=== PATIENT | female | born 1945 | race Caucasian/White ===

== ENCOUNTER 2020-07-04 12:07 | Outpatient (REF) | payer MEDICARE, OTHER, SELFPAY ==
--- NOTE | ~2020-07-04 | MM_ITS ---
EXAMINATION: MM SCREENING DIGITAL BREAST TOMOSYNTHESIS, BILATERAL CLINICAL INFORMATION: Screening. Asymptomatic. The lifetime risk of breast cancer based on the Tyrer-Cuzick Model is 5%. COMPARISON: Mammography: 06/22/2019, 06/17/2018, 05/24/2017 TECHNIQUE: Digital breast tomosynthesis is performed in both the craniocaudal and mediolateral oblique views along with computer-aided detection (CAD). Synthesized 2D images are generated from the tomosynthesis. FINDINGS: There are scattered areas of fibroglandular density (ACR BI-RADS breast composition Category b). There is no interval mass or developing density or architectural abnormality in either breast. There are scattered bilateral benign punctate calcifications. There are focal tightly grouped increased calcifications central mid left breast, possibly vascular on tomography. Patient will be recalled for additional magnification views. MM/MM tomosynthesis screening BI IMPRESSION: 1. Left: Focal increased calcifications mid central left breast, possibly vascular. 2. Right: No mammographic evidence of malignancy. ASSESSMENT: BI-RADS 0: Incomplete - Need Additional Imaging Evaluation RECOMMENDATION: 1. Additional views of the left breast (magnification CC, magnification ML). 2. Radiology department staff will contact the patient for additional imaging. This patient's information was entered into a reminder system with a target due date for their next mammogram.
== END 2020-07-04 12:08 | disposition home or self-care (01) ==
LOC: HO.MAMMO 12:07
PROVIDERS: PCP Internal Medicine; Visit Provider Internal Medicine
DX: Z12.31 Encounter for screening mammogram for malignant neoplasm of breast (principal)
CPT/HCPCS: 77063; 77067

== ENCOUNTER 2020-07-07 10:50 | Outpatient (REF) | payer MEDICARE, OTHER, SELFPAY ==
--- NOTE | ~2020-07-07 | MM_ITS ---
EXAMINATION: MM DIAGNOSTIC DIGITAL MAMMOGRAPHY, LEFT CLINICAL INFORMATION: Recall from screening for focal tightly grouped calcifications central mid left breast, possibly vascular on tomography. COMPARISON: Mammography: 07/04/2020, 06/22/2019 TECHNIQUE: Digital mammography is performed in the following views: Magnification CC x2, magnification ML. FINDINGS: There are scattered areas of fibroglandular density (ACR BI-RADS breast composition Category b). The additional views show the tightly grouped calcifications central mid breast, punctate and with some lucent centers. These have probable benign appearance. There are fine calcifications also present superior medial to the group for recall which are in a linear distribution, at least 15 in number, and fine punctate. They are new from prior studies and stereotactic sampling is recommended. Results are discussed with the patient at time of visit. Patient feels she is unable to lie prone for standard stereotactic sampling. She is willing to have sampling performed at local area outside institution with availability of upright unit. Results are called to court registry officer (Eveline) for Dr. Rossi on 07/07/2020. MM/MM added views LT IMPRESSION: 1. Numerous fine calcifications in linear distribution upper inner left breast. Stereotactic sampling recommended. 2. The calcifications for recall are probably benign. ASSESSMENT: BI-RADS 4: Suspicious RECOMMENDATION: Stereotactic sampling fine calcifications in linear distribution left breast. Note: Patient may require referral to outside facility with availability of an upright stereotactic unit as she feels unable to lie prone for sampling with stereotactic table. This patient's information was entered into a reminder system with a target due date for their next mammogram.
== END 2020-07-07 10:51 | disposition home or self-care (01) ==
LOC: HO.MAMMO 10:50
PROVIDERS: Visit Provider Internal Medicine
DX: R92.1 Mammographic calcification found on diagnostic imaging of breast (principal)
CPT/HCPCS: 77065

== ENCOUNTER → 2020-07-11 10:21 | Outpatient (BNVA) | payer MEDICARE, OTHER, SELFPAY | PROVIDERS: PCP Internal Medicine; Visit Provider Surgery | DX: R92.1 Mammographic calcification found on diagnostic imaging of breast (principal) | CPT/HCPCS: 99202 ==

== ENCOUNTER → 2020-08-24 14:20 | Outpatient (BNVA) | payer MEDICARE, OTHER, SELFPAY | PROVIDERS: PCP Internal Medicine; Visit Provider Surgery | DX: Z13.89 Encounter for screening for other disorder (principal) | CPT/HCPCS: 99212 ==

== ENCOUNTER 2021-02-06 13:45 | Outpatient (REF) | payer MEDICARE, OTHER, SELFPAY ==
--- NOTE | ~2021-02-06 | MM_ITS ---
EXAMINATION: MM DIAGNOSTIC DIGITAL BREAST TOMOSYNTHESIS, LEFT CLINICAL INFORMATION: Short interval follow-up left breast status post outside upright stereotactic biopsy 08/10/2020 ([facility]). Pathology consistent with benign breast tissue with hyalinized fibroadenomatous change with microcalcifications and benign predominantly fatty breast tissue. The lifetime risk of breast cancer based on the Tyrer-Cuzick Model is under 3%. COMPARISON: Mammography: 07/07/2020, 07/04/2020 (BI-RADS 0), 06/22/2019; outside upright stereotactic biopsy procedure report 08/10/2020. TECHNIQUE: Digital breast tomosynthesis is performed in both the craniocaudal and mediolateral oblique views along with computer-aided detection (CAD). Synthesized 2D images are generated from the tomosynthesis. Additional magnification CC x2 and magnification ML views are obtained. FINDINGS: There are scattered areas of fibroglandular density (ACR BI-RADS breast composition Category b). There is a T shaped biopsy clip marker lower central left breast mid depth, corresponding to the calcifications originally cited for recall on screening mammography 07/04/2020. These were felt to be probably benign on the subsequent diagnostic mammography of 07/07/2020. The outside upright stereotactic biopsy report findings are concordant (hyalinized fibroadenomatous change with microcalcifications). The fine calcifications superior and medial to the biopsied calcifications recommended for tissue sampling on diagnostic mammography 07/07/2020 are stable. They are in a linear distribution and at least 15 in number. These reside approximately 6.5 cm medial and 2.5 cm superior to the sampled calcifications, as measured on the magnification views. Although they are without significant change from prior diagnostic mammography, attempt at upright stereotactic tissue sampling is again recommended. If these are unable to be visualized for percutaneous sampling, then continued surveillance would be recommended with diagnostic left mammography in 6 months to include magnification views. Results and recommendation are discussed with the patient at time of visit. Results and recommendation are called to medical communication specialist (Valentina) for Dr. Sullivan on 02/06/2021. MM/MM tomosynthesis diagnostic LT IMPRESSION: 1. The fine calcifications in linear distribution medial and superior to the sampled calcifications are stable. 2. The probable benign calcifications central left breast have been sampled at outside facility and found to be benign. ASSESSMENT: BI-RADS 4: Suspicious RECOMMENDATION: Attempt at upright stereotactic biopsy calcifications left breast (medial and superior to recently sampled area). If the calcifications are unable to be visualized for percutaneous sampling, then continued surveillance would be recommended with diagnostic left mammography in 6 months to include magnification views. This patient's information was entered into a reminder system with a target due date for their next mammogram.
== END 2021-02-06 13:46 | disposition home or self-care (01) ==
LOC: HO.MAMMO 13:45
PROVIDERS: PCP Internal Medicine; Visit Provider Surgery
DX: R92.1 Mammographic calcification found on diagnostic imaging of breast (principal)
CPT/HCPCS: 77061; 77065

== ENCOUNTER → 2021-02-15 11:05 | Outpatient (BNVA) | payer MEDICARE, OTHER, SELFPAY | PROVIDERS: PCP Internal Medicine; Referring Provider Internal Medicine; Visit Provider Surgery | DX: R92.1 Mammographic calcification found on diagnostic imaging of breast (principal) | CPT/HCPCS: 99212 ==

== ENCOUNTER 2021-03-22 14:58 | Outpatient (REF) | payer MEDICARE, OTHER, SELFPAY ==
[2021-03-22 18:48] LABS: Free T4 (Free Thyroxine) 0.89 ng/dL (0.71-1.85); Thyroid Stimulating Hormone 0.04 uIU/mL (0.32-4.0); Vitamin D 25-OH Total 37.3 ng/mL (>30)
[2021-03-23 20:51] LABS: Triiodothyronine T3 Free 3.5 pg/mL (2.3-4.2)
== END 2021-03-22 14:59 | disposition home or self-care (01) ==
LOC: HO.HMGCLDS 14:58
PROVIDERS: PCP Internal Medicine; Visit Provider Internal Medicine
DX: E55.9 Vitamin D deficiency, unspecified (principal); E05.90 Thyrotoxicosis, unspecified without thyrotoxic crisis or storm
CPT/HCPCS: 36415; 82306; 84439; 84443; 84481

== ENCOUNTER 2021-06-27 11:22 | Outpatient (REF) | payer MEDICARE, OTHER, SELFPAY ==
[2021-06-27 14:45] LABS: Free T4 (Free Thyroxine) 0.67 ng/dL (0.71-1.85); Thyroid Stimulating Hormone 1.23 uIU/mL (0.32-4.0)
[2021-06-29 02:12] LABS: Triiodothyronine T3 Free 2.8 pg/mL (2.3-4.2)
== END 2021-06-27 11:23 | disposition home or self-care (01) ==
LOC: HO.HMGCLDS 11:22
PROVIDERS: PCP Internal Medicine; Visit Provider Internal Medicine
DX: E05.90 Thyrotoxicosis, unspecified without thyrotoxic crisis or storm (principal)
CPT/HCPCS: 36415; 84439; 84443; 84481

== ENCOUNTER → 2021-08-09 10:50 | Outpatient (BNVA) | payer MEDICARE, OTHER, SELFPAY | PROVIDERS: PCP Internal Medicine; Referring Provider Internal Medicine; Visit Provider Surgery | DX: R92.1 Mammographic calcification found on diagnostic imaging of breast (principal) | CPT/HCPCS: 99212 ==

== ENCOUNTER 2021-08-21 08:47 | Outpatient (REF) | payer MEDICARE, OTHER, SELFPAY ==
[2021-08-21 11:13] LABS: MANUAL DIFF FLAG NO
[2021-08-21 11:31] LABS: Basophils Absolute Auto 0.1 X10*3/uL (0.0-0.2); Basophils Percent Auto 0.7 % (0-2); Eosinophils Absolute Auto 0.1 X10*3/uL (0.0-0.4); Eosinophils Percent Auto 1.6 % (0-4); Hematocrit 46.4 % (37.0-47.0); Hemoglobin 15.2 g/dl (12.0-16.0); Imm Gran Abs Auto 0.03 X10*3/uL (0.00-0.03); Imm Gran Pct Auto 0.4 % (0.0-0.4); Lymphocytes Absolute Auto 2.5 X10*3/uL (1.2-4.9); Lymphocytes Percent Auto 32.5 % (20-40); Mean Corpuscular HGB Conc 32.8 g/dl (31.0-35.0); Mean Corpuscular Hemoglobin 31.1 pg (27.0-33.0); Mean Corpuscular Volume 94.9 fL (80.0-98.0); Mean Platelet Volume 9.2 fL (9.4-12.3); Monocytes Absolute Auto 0.5 X10*3/uL (0.1-1.2); Monocytes Percent Auto 6.7 % (2-11); Neutrophils Absolute Auto 4.4 x10*3/uL (2.0-8.3); Neutrophils Percent Auto 58.1 % (45-73); Platelet Count 369 X10*3/uL (160-400); Red Blood Count 4.89 X10*6/uL (4.20-5.50); White Blood Count 7.6 X10*3/uL (4.8-10.8)
[2021-08-21 11:40] LABS: Alanine Aminotransferase 15 U/L (0-31); Albumin Level 4.3 g/dL (3.5-5.0); Alkaline Phosphatase 97 U/L (39-117); Anion Gap 12 (12-20); Aspartate Amino Transferase 16 U/L (5-31); Bilirubin Total 0.4 mg/dL (0.0-1.0); Blood Urea Nitrogen 11 mg/dL (9-16); Calcium 9.6 mg/dL (8.4-10.2); Carbon Dioxide 28 mmol/L (22-29); Chloride 104 mmol/L (96-108); Cholesterol 277 mg/dL; Estimated Glomerular Filt Rate 58; Glucose Fasting 102 mg/dL (60-99); HDL Cholesterol 46 mg/dL; LDL Cholesterol Calculated 189 mg/dl; Potassium 4.3 mmol/L (3.3-5.1); Sodium 140 mmol/L (135-145); Total Protein 6.9 g/dL (6.5-8.0); Triglycerides 213 mg/dL
== END 2021-08-21 08:48 | disposition home or self-care (01) ==
LOC: HO.HMGCLDS 08:47
PROVIDERS: PCP Internal Medicine; Visit Provider Nurse Practitioner Family
DX: Z00.00 Encounter for general adult medical examination without abnormal findings (principal); Z13.1 Encounter for screening for diabetes mellitus; F32.0 Major depressive disorder, single episode, mild; I10 Essential (primary) hypertension; E78.00 Pure hypercholesterolemia, unspecified; E05.90 Thyrotoxicosis, unspecified without thyrotoxic crisis or storm
CPT/HCPCS: 36415; 80053; 80061; 85025

== ENCOUNTER 2021-10-16 15:02 | Outpatient (REF) | payer MEDICARE, OTHER, SELFPAY ==
[2021-10-16 16:51] LABS: Alanine Aminotransferase 16 U/L (0-31); Aspartate Amino Transferase 14 U/L (5-31)
[2021-10-16 17:12] LABS: Free T4 (Free Thyroxine) 0.79 ng/dL (0.71-1.85); Thyroid Stimulating Hormone 2.23 uIU/mL (0.32-4.0)
== END 2021-10-16 15:03 | disposition home or self-care (01) ==
LOC: HO.HMGCLDS 15:02
PROVIDERS: PCP Internal Medicine; Visit Provider Internal Medicine
DX: E05.90 Thyrotoxicosis, unspecified without thyrotoxic crisis or storm (principal)
CPT/HCPCS: 36415; 84439; 84443; 84450; 84460; 84481

== ENCOUNTER 2022-01-09 08:10 | Outpatient (REF) | payer MEDICARE, OTHER, SELFPAY ==
[2022-01-09 12:07] LABS: Cholesterol 161 mg/dL; Glucose Fasting 93 mg/dL (60-99); HDL Cholesterol 47 mg/dL; LDL Cholesterol Calculated 83 mg/dl; Triglycerides 158 mg/dL
== END 2022-01-09 08:11 | disposition home or self-care (01) ==
LOC: HO.HMGCLDS 08:10
PROVIDERS: Nurse Practitioner Family; PCP Internal Medicine; Visit Provider Internal Medicine
DX: Z00.00 Encounter for general adult medical examination without abnormal findings (principal); Z13.1 Encounter for screening for diabetes mellitus; E05.90 Thyrotoxicosis, unspecified without thyrotoxic crisis or storm; F32.0 Major depressive disorder, single episode, mild; I10 Essential (primary) hypertension
CPT/HCPCS: 36415; 80061; 82947

== ENCOUNTER → 2022-02-12 10:47 | Outpatient (BNVA) | payer MEDICARE, OTHER, SELFPAY | PROVIDERS: PCP Internal Medicine; Referring Provider Internal Medicine; Visit Provider Surgery | DX: R92.1 Mammographic calcification found on diagnostic imaging of breast (principal) | CPT/HCPCS: 99212 ==

== ENCOUNTER 2022-05-01 13:29 | Outpatient (REF) | payer MEDICARE, OTHER, SELFPAY ==
[2022-05-01 17:33] LABS: Free T4 (Free Thyroxine) 0.77 ng/dL (0.71-1.85); Thyroid Stimulating Hormone 2.25 uIU/mL (0.32-4.0)
[2022-05-03 06:58] LABS: Triiodothyronine T3 Free 2.7 pg/mL (2.3-4.2)
== END 2022-05-01 13:30 | disposition home or self-care (01) ==
LOC: HO.HMGCLDS 13:29
PROVIDERS: PCP Internal Medicine; Visit Provider Internal Medicine
DX: E05.90 Thyrotoxicosis, unspecified without thyrotoxic crisis or storm (principal)
CPT/HCPCS: 36415; 84439; 84443; 84481

== ENCOUNTER 2022-07-04 11:11 | Outpatient (REF) | payer MEDICARE, OTHER, SELFPAY ==
[2022-07-04 15:22] LABS: Free T4 (Free Thyroxine) 0.74 ng/dL (0.71-1.85); Thyroid Stimulating Hormone 3.03 uIU/mL (0.32-4.0)
[2022-07-06 08:58] LABS: Triiodothyronine T3 Total 121 ng/dL (76-181)
[2022-07-06 09:33] LABS: Thyroglobulin Antibodies <1 IU/mL (< or = 1)
[2022-07-06 14:04] LABS: Thyroid Peroxidase Antibodies <1 IU/mL (<9)
[2022-07-10 06:58] LABS: Thyrotropin Receptor Antibody <1.00 IU/L (<=2.00)
[2022-07-11 15:44] LABS: Thyroid Stimulating Immunoglob <89 % baseline (<140)
== END 2022-07-04 11:12 | disposition home or self-care (01) ==
LOC: HO.HMGCLDS 11:11
PROVIDERS: PCP Internal Medicine; Visit Provider Internal Medicine
DX: E05.90 Thyrotoxicosis, unspecified without thyrotoxic crisis or storm (principal); I10 Essential (primary) hypertension; Z79.899 Other long term (current) drug therapy
CPT/HCPCS: 36415; 83520; 84439; 84443; 84445; 84480; 86376; 86800; 99202

== ENCOUNTER 2022-07-23 14:22 | Outpatient (REF) | payer MEDICARE, OTHER, SELFPAY ==
--- NOTE | ~2022-07-23 | US_ITS ---
EXAMINATION: US THYROID CLINICAL INFORMATION: Thyrotoxicosis, unspecified without thyrotoxic crisis or storm. COMPARISON: None available. TECHNIQUE: Linear transducer grayscale and color Doppler examination with attention to the region of the thyroid. FINDINGS: SIZE: Measurements of the thyroid lobes and nodules are given in sagittal, anteroposterior and transverse dimensions respectively. Right Thyroid Lobe: 6.0 x 2.6 x 1.4 cm, volume 11.5 mL. Parenchyma: The gland echotexture is homogeneous. Thyroid vascularity is normal. Left Thyroid Lobe: 5.7 x 2.5 x 1.6 cm, volume 12.3 mL. Parenchyma: The gland echotexture is homogeneous. Thyroid vascularity is normal. Isthmus: 0.3 cm in maximum AP dimension. Estimated total number of nodules greater than or equal to 1 cm: 3. Hydropress Operator nodules are described as follows: 1. Location: Right mid. Size: 1.6 x 1.0 x 1.3 cm, volume 1.0 mL. Nodule characteristics: Composition: Solid/almost completely solid (2). Echogenicity: Isoechoic (1). Shape: Not taller than wide (0). Margins: Smooth (0). Echogenic Foci: Punctate echogenic foci (3). ACR TI-RADS total points: 6 ACR TI-RADS category: 4 2. Location: Right mid. Size: 1.3 x 0.5 x 1.0 cm, volume 0.3 mL. Nodule characteristics: Composition: Solid/almost completely solid (2). Echogenicity: Isoechoic (1). Shape: Not taller than wide (0). Margins: Smooth (0). Echogenic Foci: None (0). ACR TI-RADS total points: 3 ACR TI-RADS category: 3 3. Location: Right medial inferior. Size: 2.2 x 1.2 x 1.3 cm, volume 1.7 mL. Nodule characteristics: Composition: Solid/almost completely solid (2). Echogenicity: Isoechoic (1). Shape: Not taller than wide (0). Margins: Smooth (0). Echogenic Foci: Punctate echogenic foci (3). ACR TI-RADS total points: 6 ACR TI-RADS category: 4 4. Location: Left mid. Size: 2.5 x 1.1 x 1.3 cm, volume 2.0 mL. Nodule characteristics: Composition: Solid/almost completely solid (2). Echogenicity: Isoechoic (1). Shape: Not taller than wide (0). Margins: Ill-defined (0). Echogenic Foci: Punctate echogenic foci (3). ACR TI-RADS total points: 6 ACR TI-RADS category: 4 5. Location: Left mid/inferior. Size: 0.9 x 0.7 x 0.8 cm, volume 0.3 mL. Nodule characteristics: Composition: Solid/almost completely solid (2). Echogenicity: Isoechoic (1). Shape: Not taller than wide (0). Margins: Ill-defined (0). Echogenic Foci: Punctate echogenic foci (3). ACR TI-RADS total points: 6 ACR TI-RADS category: 4 NODES: No lymphadenopathy is seen in the tissue surrounding the thyroid gland. US/US thyroid IMPRESSION: Thyromegaly with multiple complex bilateral thyroid nodules. The largest nodule measuring 2.5 cm in midpole and 1.6 cm in midpole and 2.2 cm in lower pole should be biopsied as per ACR TI-RADS recommendation. ACR TI-RADS RECOMMENDATION REFERENCE: Ultrasound-guided fine-needle aspiration, followup ultrasound, no further follow up. * TR1 (0 point) and TR2 (2 points): No FNA or follow up. * TR3 (3 points): FNA if more than or equal to 2.5 cm in maximum dimension, followup ultrasound in 1, 3 and 5 years if 1.5 to 2.4 cm in maximum dimension. * TR4 (4-6 points): FNA if more than or equal to 1.5 cm in maximum dimension, followup ultrasound in 1, 2, 3 and 5 years if 1 to 1.4 cm in maximum dimension. * TR5 (more than or equal to 7 points): FNA if more than or equal to 1 cm in maximum dimension, followup ultrasound every year for 5 years if 0.5 to 0.9 cm in maximum dimension. * TR3, TR4 or TR5 nodules that are below the size threshold for followup receive no follow up.
== END 2022-07-23 14:23 | disposition home or self-care (01) ==
LOC: HO.US 14:22
PROVIDERS: PCP Internal Medicine; Visit Provider Internal Medicine
DX: E05.90 Thyrotoxicosis, unspecified without thyrotoxic crisis or storm (principal)
CPT/HCPCS: 76536

== ENCOUNTER 2022-08-29 07:58 | Outpatient (REF) | payer MEDICARE, SELFPAY ==
[2022-08-29 12:02] LABS: Cholesterol 198 mg/dL; HDL Cholesterol 40 mg/dL; LDL Cholesterol Calculated 123 mg/dl; Triglycerides 175 mg/dL
== END 2022-08-29 07:59 | disposition home or self-care (01) ==
LOC: HO.HMGCLDS 07:58
PROVIDERS: PCP Internal Medicine; Visit Provider Internal Medicine
DX: E78.5 Hyperlipidemia, unspecified (principal)
CPT/HCPCS: 36415; 80061

== ENCOUNTER 2022-11-12 12:37 | Outpatient (REF) | payer MEDICARE, OTHER, SELFPAY ==
--- NOTE | ~2022-11-12 | US_ITS ---
EXAMINATION: Ultrasound biopsy thyroid CLINICAL INFORMATION: Multinodular goiter COMPARISON: Previous thyroid ultrasound July 2022 TECHNIQUE: Procedure and risks and benefits including bleeding and infection were discussed with the patient and informed consent was obtained. The left neck was prepped and draped in the usual sterile fashion. The skin and soft tissues were anesthetized with 1% lidocaine plain. Using ultrasound guidance a 25-gauge needles, access to the dominant nodule in the mid left lobe was obtained. 3 25-gauge FNA specimens were obtained. Subsequently, using a 25-gauge needle, access to the nodule in the inferior left lobe was obtained. 3 25-gauge specimens were obtained. FINDINGS: There is a 1.4 x 1 x 2.5 cm nodule in the mid left lobe with punctate calcifications and 1 x 0.9 x 0.7 cm nodule in the inferior left lobe with punctate calcifications that were targeted for fine-needle aspiration. US/US biopsy thyroid IMPRESSION: Fine-needle aspiration of 2 left thyroid nodules.
== END 2022-11-12 12:38 | disposition home or self-care (01) ==
LOC: HO.US 12:37
PROVIDERS: PCP Internal Medicine; Visit Provider Internal Medicine
DX: E04.2 Nontoxic multinodular goiter (principal)
CPT/HCPCS: 10005; 88112; 88172; 88173; 88177

== ENCOUNTER 2022-11-22 12:34 | Outpatient (AMB) | payer MEDICARE, OTHER, SELFPAY ==
--- NOTE | 2022-11-22 12:35 | A.OFFVIS_ITS ---
Intake Intake Visit Reasons: FNA results Allergies cefuroxime [From Ceftin] Allergy (Unknown, Verified 11/22/22 12:41) Unknown epinephrine [Adrenalin] Allergy (Unknown, Verified 11/22/22 12:41) rapid heartbeat penicillin V Allergy (Unknown, Verified 11/22/22 12:41) Unknown Medication List - Last Reconciled 11/22/22 by Kayla Rapp, DO atorvastatin 10 mg PO DAILY lisinopril 2.5 mg PO DAILY methimazole 2.5 mg (1/2 x 5 mg) PO DAILY omeprazole 20 mg PO DAILY HPI HPI Comments History of Present Illness Details 77 YO Female with a PMHx of hyperthyroidism who is seen in F/U for a NTMNG. She reports being diagnosed with hyperthyroidism approximately 1 year ago. It is unclear what workup she underwent as no records have been received. She does report she had a thyroid uptake and scan which was normal, but she is unsure of any antibodies that were checked. She was started on methimazole 2.5 mg PO daily an remains on this now. She is tolerating this well without the development of rash, jaundice or frequent infection. She underwent FNA biopsy 11/14/2022 of her left mid pole 2.5 cm and left lower pole 1.0 cm thyroid nodules, both with benign cytology. She did not undergo FNA biopsy of her right lobe nodules. Thyroid US: 07/23/2022 Right Thyroid Lobe: 6.0 x 2.6 x 1.4 cm, volume 11.5 mL. Parenchyma: The gland echotexture is homogeneous. Thyroid vascularity is normal. Left Thyroid Lobe: 5.7 x 2.5 x 1.6 cm, volume 12.3 mL. Parenchyma: The gland echotexture is homogeneous. Thyroid vascularity is normal. Isthmus: 0.3 cm in maximum AP dimension. Estimated total number of nodules greater than or equal to 1 cm: 3. Furnace Checker nodules are described as follows: 1. Location: Right mid. ?? ? Size: 1.6 x 1.0 x 1.3 cm, volume 1.0 mL. ?? ? Nodule characteristics: ?? ? Composition: Solid/almost completely solid (2). ?? ? Echogenicity: Isoechoic (1). ?? ? Shape: Not taller than wide (0). ?? ? Margins: Smooth (0). ?? ? Echogenic Foci: Punctate echogenic foci (3). ?? ? ACR TI-RADS total points: 6 ?? ? ACR TI-RADS category: 4 2. Location: Right mid. ?? ? Size: 1.3 x 0.5 x 1.0 cm, volume 0.3 mL. ?? ? Nodule characteristics: ?? ? Composition: Solid/almost completely solid (2). ?? ? Echogenicity: Isoechoic (1). ?? ? Shape: Not taller than wide (0). ?? ? Margins: Smooth (0). ?? ? Echogenic Foci: None (0). ?? ? ACR TI-RADS total points: 3 ?? ? ACR TI-RADS category: 3 3. Location: Right medial inferior. ?? ? Size: 2.2 x 1.2 x 1.3 cm, volume 1.7 mL. ?? ? Nodule characteristics: ?? ? Composition: Solid/almost completely solid (2). ?? ? Echogenicity: Isoechoic (1). ?? ? Shape: Not taller than wide (0). ?? ? Margins: Smooth (0). ?? ? Echogenic Foci: Punctate echogenic foci (3). ?? ? ACR TI-RADS total points: 6 ?? ? ACR TI-RADS category: 4 4. Location: Left mid. ?? ? Size: 2.5 x 1.1 x 1.3 cm, volume 2.0 mL. ?? ? Nodule characteristics: ?? ? Composition: Solid/almost completely solid (2). ?? ? Echogenicity: Isoechoic (1). ?? ? Shape: Not taller than wide (0). ?? ? Margins: Ill-defined (0). ?? ? Echogenic Foci: Punctate echogenic foci (3). ?? ? ACR TI-RADS total points: 6 ?? ? ACR TI-RADS category: 4 5.? Location: Left mid/inferior. ?? ? Size: 0.9 x 0.7 x 0.8 cm, volume 0.3 mL. ?? ? Nodule characteristics: ?? ? Composition: Solid/almost completely solid (2). ?? ? Echogenicity: Isoechoic (1). ?? ? Shape: Not taller than wide (0). ?? ? Margins: Ill-defined (0). ?? ? Echogenic Foci: Punctate echogenic foci (3). ?? ? ACR TI-RADS total points: 6 ?? ? ACR TI-RADS category: 4 NODES: No lymphadenopathy is seen in the tissue surrounding the thyroid gland. Labs: Laboratory Tests 05/01/22 13:36 TSH 2.25 Free T4 0.77 PFSH Medical History Breast calcification, left Hypertension Hyperthyroidism Multinodular thyroid Surgical History History of breast biopsy History of cholecystectomy Family History Father Esophageal cancer Mother No problems noted. Social History Housing: [facility] Alcohol intake: current Alcohol intake frequency: holidays/special occasions only Patient Tobacco Use Status: Current everyday Tobacco user Tobacco use type: Cigarette Cigarette Packs Per Day: 0.5 Cigarettes Per Day: 10 e-Cigarette/Vaping Use: Never Used Second Hand Smoke Exposure: Yes service: No Current occupational status: retired Cognitive needs: No Hearing needs: No Vision needs: No Assessment & Plan Assessment & Plan (1) Hyperthyroidism: Code(s): E05.90 - Thyrotoxicosis, unspecified without thyrotoxic crisis or storm Plan: Patient with hyperthyroidism. All antibodies negative and TFTs at goal on methimazole 2.5 mg PO daily. Will continue for now while she is undergoing biopsies. Once complete we will discuss weaning her off of this to assess for remission as I have been unable to determine a cause for her hyperthyroidism. All of her questions were answered. She is in agreement with this plan of care. I spent 25 minutes in reviewing the record, seeing the patient and documenting in the medical record, including 5 minutes on the phone with the Patient. (2) Multinodular thyroid: Code(s): E04.2 - Nontoxic multinodular goiter Plan: Patient underwent FNA biopsy of her left mid pole 2.5 cm and left lower pole 1.0 cm thyroid nodules 11/14/2022 with benign cytology. FNA is also indicated of her right mid pole 1.6 cm, right mid pole 1.3 cm and right mid pole 2.2 cm thyroid nodules. I will order at this time for these to be completed with IR. Orders: Orders Triiodothyronine T3 Total Today E05.90 - Thyrotoxicosis, unspecified without thyrotoxic crisis or storm Free T4 (Free Thyroxine) Today E05.90 - Thyrotoxicosis, unspecified without thyrotoxic crisis or storm Thyroid Stimulating Hormone Today E05.90 - Thyrotoxicosis, unspecified without thyrotoxic crisis or storm US biopsy thyroid Today E04.2 - Nontoxic multinodular goiter Telehealth Telehealth Location of provider rendering services: practice address Location of patient: address on file Patient Identification confirmed using: Name, : Yes Telehealth method: voice only Patient verbally consented to treatment: Yes Patient verbally consented to billing insurance company: Yes Patient informed of any privacy concerns related to visit: Yes Coding Level of Care Code Tele Est Pt Level 3 (18375) Diagnoses Hyperthyroidism E05.90 Multinodular thyroid E04.2
== END 2022-11-22 13:13 | disposition home or self-care (01) ==
LOC: HO.ENCR 12:34
PROVIDERS: PCP Internal Medicine; Visit Provider Internal Medicine
DX: E05.90 Thyrotoxicosis, unspecified without thyrotoxic crisis or storm (principal); E04.2 Nontoxic multinodular goiter
CPT/HCPCS: 99443

== ENCOUNTER → 2022-11-22 12:34 | Outpatient (BNVA) | payer MEDICARE, OTHER, SELFPAY | PROVIDERS: PCP Internal Medicine; Visit Provider Internal Medicine ==

== ENCOUNTER 2022-11-30 13:32 | Outpatient (REF) | payer MEDICARE, OTHER, SELFPAY ==
[2022-11-30 17:05] LABS: Free T4 (Free Thyroxine) 0.65 ng/dL (0.71-1.85)
[2022-12-02 08:13] LABS: Triiodothyronine T3 Total 113 ng/dL (76-181)
== END 2022-11-30 13:33 | disposition home or self-care (01) ==
LOC: HO.HMGCLDS 13:32
PROVIDERS: PCP Internal Medicine; Visit Provider Internal Medicine
DX: E05.90 Thyrotoxicosis, unspecified without thyrotoxic crisis or storm (principal)
CPT/HCPCS: 36415; 84439; 84443; 84480

== ENCOUNTER 2022-12-13 13:06 | Outpatient (REF) | payer MEDICARE, OTHER, SELFPAY ==
--- NOTE | ~2022-12-13 | US_ITS ---
Ultrasound-guided biopsy of 3 nodules in the right lobe of the thyroid gland INDICATIONS: Multiple thyroid nodules status post biopsy of 2 nodules in the left lobe of the thyroid gland on 11/12/2022 After informed written consent was obtained in official timeout was performed immediately prior to the procedure. PROCEDURE: Initial ultrasound surveillance of the right lobe of the thyroid gland redemonstrated the dominant nodules: one in the isthmus of the thyroid gland slightly to the right of midline measuring 2.1 x 0.8 x 1.6 cm. A second lesion in the inferior aspect of the right lobe of the thyroid gland measured 1.9 x 1.2 x 1.2 cm. A third lesion in the midportion of the right lobe of the gland measures 1.6 x 0.9 x 1.3 cm. A fourth smaller nodule is present in the midportion of the gland measuring 0.7 cm in size. Under ultrasound guidance initially the lesion in the isthmus of the gland extending slightly to the right of midline was biopsied with a 25-gauge needle. 3 aspirations were obtained with one sample placed in the afirma. The lesion in the lower pole of the right lobe of the gland measuring 1.9 x 1.2 x 1.6 cm was biopsy with a 25-gauge needle. 2 passes were obtained. The third lesion in the midportion of the gland measuring 1.6 x 0.9 x 1.3 cm was then sampled with 3 needle aspirates obtained with one sample placed in afirma as well. US/US guided fine needle asp IMPRESSION: Ultrasound-guided biopsy of the 3 of the largest nodules in the right lobe of the thyroid gland.
--- NOTE | ~2022-12-13 | US_ITS ---
Ultrasound-guided biopsy of 3 nodules in the right lobe of the thyroid gland INDICATIONS: Multiple thyroid nodules status post biopsy of 2 nodules in the left lobe of the thyroid gland on 11/12/2022 After informed written consent was obtained in official timeout was performed immediately prior to the procedure. PROCEDURE: Initial ultrasound surveillance of the right lobe of the thyroid gland redemonstrated the dominant nodules: one in the isthmus of the thyroid gland slightly to the right of midline measuring 2.1 x 0.8 x 1.6 cm. A second lesion in the inferior aspect of the right lobe of the thyroid gland measured 1.9 x 1.2 x 1.2 cm. A third lesion in the midportion of the right lobe of the gland measures 1.6 x 0.9 x 1.3 cm. A fourth smaller nodule is present in the midportion of the gland measuring 0.7 cm in size. Under ultrasound guidance initially the lesion in the isthmus of the gland extending slightly to the right of midline was biopsied with a 25-gauge needle. 3 aspirations were obtained with one sample placed in the afirma. The lesion in the lower pole of the right lobe of the gland measuring 1.9 x 1.2 x 1.6 cm was biopsy with a 25-gauge needle. 2 passes were obtained. The third lesion in the midportion of the gland measuring 1.6 x 0.9 x 1.3 cm was then sampled with 3 needle aspirates obtained with one sample placed in afirma as well. US/US guided fine needle asp add IMPRESSION: Ultrasound-guided biopsy of the 3 of the largest nodules in the right lobe of the thyroid gland.
[2022-12-13] MEDS: Lidocaine HCl 1 % MPF 5 ML VIAL SUBCUT (14:45)
== END 2022-12-13 13:07 | disposition home or self-care (01) ==
LOC: HO.US 13:06
PROVIDERS: PCP Internal Medicine; Visit Provider Internal Medicine Endocrinology, Diabetes & Metabolism
DX: E04.2 Nontoxic multinodular goiter (principal)
CPT/HCPCS: 10005; 10006; 88172; 88173; 88177

== ENCOUNTER → 2022-12-13 13:08 | Outpatient (BNV) | payer MEDICARE, OTHER, SELFPAY | PROVIDERS: PCP Internal Medicine; Visit Provider Radiology Vascular & Interventional Radiology | DX: E04.2 Nontoxic multinodular goiter (principal) | CPT/HCPCS: 10005; 10006 ==

== ENCOUNTER 2022-12-31 09:16 | Outpatient (AMB) | payer MEDICARE, OTHER, SELFPAY ==
--- NOTE | 2022-12-31 09:17 | A.OFFVIS_ITS ---
Intake Intake Visit Reasons: FNA Result Intake Note: FNA results. [employer] Required: No Allergies cefuroxime [From Ceftin] Allergy (Unknown, Verified 12/31/22 09:49) Unknown epinephrine [Adrenalin] Allergy (Unknown, Verified 12/31/22 09:49) rapid heartbeat penicillin V Allergy (Unknown, Verified 12/31/22 09:49) Unknown Medication List - Last Reconciled 12/31/22 by Kayla Rapp, atorvastatin 10 mg PO DAILY lisinopril 2.5 mg PO DAILY methimazole 2.5 mg (1/2 x 5 mg) PO DAILY omeprazole 20 mg PO DAILY HPI HPI Comments History of Present Illness Details 77 YO Female with a PMHx of hyperthyroidism who is seen in F/U for a NTMNG. She reports being diagnosed with hyperthyroidism approximately 1 year ago. It is unclear what workup she underwent as no records have been received. She does report she had a thyroid uptake and scan which was normal, but she is unsure of any antibodies that were checked. She was started on methimazole 2.5 mg PO daily an remains on this now. She is tolerating this well without the development of rash, jaundice or frequent infection. She underwent FNA biopsy 11/14/2022 of her left mid pole 2.5 cm and left lower pole 1.0 cm thyroid nodules, both with benign cytology. She did not undergo FNA biopsy of her right lobe nodules. She underwent an additional FNA biopsy 12/14/2022 of her R sided nodule, right isthmus 2.1 cm, benign right lower pole 1.9 cm, benign right mid pole 1.6 cm, benign Thyroid US: 07/23/2022 Right Thyroid Lobe: 6.0 x 2.6 x 1.4 cm, volume 11.5 mL. Parenchyma: The gland echotexture is homogeneous. Thyroid vascularity is normal. Left Thyroid Lobe: 5.7 x 2.5 x 1.6 cm, volume 12.3 mL. Parenchyma: The gland echotexture is homogeneous. Thyroid vascularity is normal. Isthmus: 0.3 cm in maximum AP dimension. Estimated total number of nodules greater than or equal to 1 cm: 3. Tanbark Peeler nodules are described as follows: 1. Location: Right mid. ?? ? Size: 1.6 x 1.0 x 1.3 cm, volume 1.0 mL. ?? ? Nodule characteristics: ?? ? Composition: Solid/almost completely solid (2). ?? ? Echogenicity: Isoechoic (1). ?? ? Shape: Not taller than wide (0). ?? ? Margins: Smooth (0). ?? ? Echogenic Foci: Punctate echogenic foci (3). ?? ? ACR TI-RADS total points: 6 ?? ? ACR TI-RADS category: 4 2. Location: Right mid. ?? ? Size: 1.3 x 0.5 x 1.0 cm, volume 0.3 mL. ?? ? Nodule characteristics: ?? ? Composition: Solid/almost completely solid (2). ?? ? Echogenicity: Isoechoic (1). ?? ? Shape: Not taller than wide (0). ?? ? Margins: Smooth (0). ?? ? Echogenic Foci: None (0). ?? ? ACR TI-RADS total points: 3 ?? ? ACR TI-RADS category: 3 3. Location: Right medial inferior. ?? ? Size: 2.2 x 1.2 x 1.3 cm, volume 1.7 mL. ?? ? Nodule characteristics: ?? ? Composition: Solid/almost completely solid (2). ?? ? Echogenicity: Isoechoic (1). ?? ? Shape: Not taller than wide (0). ?? ? Margins: Smooth (0). ?? ? Echogenic Foci: Punctate echogenic foci (3). ?? ? ACR TI-RADS total points: 6 ?? ? ACR TI-RADS category: 4 4. Location: Left mid. ?? ? Size: 2.5 x 1.1 x 1.3 cm, volume 2.0 mL. ?? ? Nodule characteristics: ?? ? Composition: Solid/almost completely solid (2). ?? ? Echogenicity: Isoechoic (1). ?? ? Shape: Not taller than wide (0). ?? ? Margins: Ill-defined (0). ?? ? Echogenic Foci: Punctate echogenic foci (3). ?? ? ACR TI-RADS total points: 6 ?? ? ACR TI-RADS category: 4 5.? Location: Left mid/inferior. ?? ? Size: 0.9 x 0.7 x 0.8 cm, volume 0.3 mL. ?? ? Nodule characteristics: ?? ? Composition: Solid/almost completely solid (2). ?? ? Echogenicity: Isoechoic (1). ?? ? Shape: Not taller than wide (0). ?? ? Margins: Ill-defined (0). ?? ? Echogenic Foci: Punctate echogenic foci (3). ?? ? ACR TI-RADS total points: 6 ?? ? ACR TI-RADS category: 4 NODES: No lymphadenopathy is seen in the tissue surrounding the thyroid gland. Labs: FORMERLY [facility], 1928–1983 Medical History Breast calcification, left Hypertension Hyperthyroidism Multinodular thyroid Surgical History History of biopsy History of breast biopsy History of cholecystectomy Family History Father Esophageal cancer Mother No problems noted. Social History Housing: [facility] Alcohol intake: current Alcohol intake frequency: holidays/special occasions only Patient Tobacco Use Status: Current everyday Tobacco user Tobacco use type: Cigarette Cigarette Packs Per Day: 0.5 Cigarettes Per Day: 10 e-Cigarette/Vaping Use: Never Used Second Hand Smoke Exposure: Yes service: No Current occupational status: retired Cognitive needs: No Hearing needs: No Vision needs: No Assessment & Plan Assessment & Plan (1) Hyperthyroidism: Code(s): E05.90 - Thyrotoxicosis, unspecified without thyrotoxic crisis or storm Plan: Patient with hyperthyroidism. All antibodies negative and TFTs at goal on methimazole 2.5 mg PO daily. Will continue for now. She will remain on this until her F/U with Raheel German at which time they can discuss weaning her off. All of her questions were answered. She is in agreement with this plan of care. I spent 20 minutes in reviewing the record, seeing the patient and documenting in the medical record, including 5 minutes on the phone with the Patient. (2) Multinodular thyroid: Code(s): E04.2 - Nontoxic multinodular goiter Plan: All biopsies benign. She will require a surveillance US in 1 years time. Telehealth Telehealth Location of provider rendering services: practice address Location of patient: address on file Patient Identification confirmed using: Name, : Yes Telehealth method: voice only Patient verbally consented to treatment: Yes Patient verbally consented to billing insurance company: Yes Patient informed of any privacy concerns related to visit: Yes Coding Level of Care Code Tele Est Pt Level 3 (64588) Diagnoses Hyperthyroidism E05.90 Multinodular thyroid E04.2
== END 2022-12-31 10:53 | disposition home or self-care (01) ==
LOC: HO.ENCR 09:16
PROVIDERS: PCP Internal Medicine; Visit Provider Internal Medicine
DX: E05.90 Thyrotoxicosis, unspecified without thyrotoxic crisis or storm (principal); E04.2 Nontoxic multinodular goiter
CPT/HCPCS: 99441

== ENCOUNTER → 2022-12-31 09:16 | Outpatient (BNVA) | payer MEDICARE, OTHER, SELFPAY | PROVIDERS: PCP Internal Medicine; Visit Provider Internal Medicine ==

== ENCOUNTER 2023-02-25 07:58 | Outpatient (REF) | payer MEDICARE, OTHER, SELFPAY ==
[2023-02-25 12:36] LABS: Alanine Aminotransferase 17 U/L (0-31); Albumin Level 4.2 g/dL (3.5-5.0); Alkaline Phosphatase 77 U/L (39-117); Anion Gap 15 (12-20); Aspartate Amino Transferase 17 U/L (5-31); Bilirubin Total 0.7 mg/dL (0.0-1.0); Blood Urea Nitrogen 8 mg/dL (9-16); Calcium 9.8 mg/dL (8.4-10.2); Carbon Dioxide 26 mmol/L (22-29); Chloride 105 mmol/L (96-108); Cholesterol 169 mg/dL (<200); Estimated Glomerular Filt Rate > 60; Glucose Fasting 92 mg/dL (60-99); HDL Cholesterol 42 mg/dL (>40); LDL Cholesterol Calculated 95 mg/dL (<100); Potassium 3.8 mmol/L (3.3-5.1); Sodium 142 mmol/L (135-145); Triglycerides 161 mg/dL (<150)
[2023-02-25 12:41] LABS: Thyroid Stimulating Hormone 5.24 uIU/mL (0.32-4.0)
== END 2023-02-25 07:59 | disposition home or self-care (01) ==
LOC: HO.HMGCLDS 07:58
PROVIDERS: PCP Internal Medicine; Visit Provider Internal Medicine
DX: E03.9 Hypothyroidism, unspecified (principal); N28.9 Disorder of kidney and ureter, unspecified; E78.5 Hyperlipidemia, unspecified
CPT/HCPCS: 36415; 80053; 80061; 84443

== ENCOUNTER 2023-03-11 11:18 | Outpatient (AMB) | payer MEDICARE, OTHER, SELFPAY ==
[2023-03-11 11:19] VITALS: BP 154/84; PULSE 80; O2SAT 97
--- NOTE | 2023-03-11 11:19 | A.OFFPC_ITS ---
Vital Signs 03/11/23 11:19 Height 5 ft 4 in BP 154/84 H Blood Pressure Location Lt brachial Position Sitting Pulse 80 Pulse Source Pulse Oximeter Pulse Oximetry (%) 97 Oxygen Delivery Method Room Air Intake Visit Reasons: 6mth f/u Allergies cefuroxime [From Ceftin] Allergy (Unknown, Verified 03/11/23 11:19) Unknown epinephrine [Adrenalin] Allergy (Unknown, Verified 03/11/23 11:19) rapid heartbeat penicillin V Allergy (Unknown, Verified 03/11/23 11:19) Unknown Medication List - Last Reconciled 03/11/23 by Noam Rossi MD atorvastatin 10 mg PO DAILY lisinopril 2.5 mg PO DAILY methimazole 2.5 mg (1/2 x 5 mg) PO DAILY omeprazole 20 mg PO DAILY Tobacco use date assessed: 09/07/22 Fall risk assessment: No Falls in past year Last assessed Fall Risk: 03/11/23 Dental Screening Dental Screen Date: 03/11/23 Did you have a dental visit in the last 12 months?: Yes Did you have a dental problem in the last 6 months where you did not have access to dental care?: No Was dental information given to patient?: Patient has dentist HPI 6mth f/u HPI Details HTN hyperthyroidism and hyperlip on rx; doing well; compliant [facility] Medical History Multinodular thyroid Breast calcification, left Hypertension Hyperthyroidism Surgical History History of biopsy History of breast biopsy History of cholecystectomy Family History Father Esophageal cancer Mother No problems noted. Social History Housing: Condominium Alcohol intake: current Alcohol intake frequency: holidays/special occasions only Patient Tobacco Use Status: Current everyday Tobacco user Tobacco use type: Cigarette Cigarette Packs Per Day: 0.5 Cigarettes Per Day: 10 e-Cigarette/Vaping Use: Never Used Second Hand Smoke Exposure: Yes service: No Current occupational status: retired Cognitive needs: No Hearing needs: No Vision needs: No Questionnaire PHQ-9 Over the last 2 weeks, how often have you been bothered by any of the following problems? 1. Little interest or pleasure in doing things: not at all 2. Feeling down, depressed, or hopeless: not at all 3. Trouble falling or staying asleep, or sleeping too much: not at all 4. Feeling tired or having little energy: not at all 5. Poor appetite or overeating: not at all 6. Feeling bad about yourself - or that you are a failure or have let yourself or your family down: not at all 7. Trouble concentrating on things, such as reading the newspaper or watching television: not at all 8. Moving or speaking so slowly that other people could have noticed. Or the opposite - being so fidgety or restless that you have been moving around a lot more than usual: not at all 9. Thoughts that you would be better off or of hurting yourself in some way: not at all Total score: 0 Depression Screening Interpretation: Negative Depression Screening Done: Yes 56678 - PHQ-9 Billing: Yes Source: Developed by Drs. Reynold Castillo, Michael Downing and colleagues, with an educational johnson from [employer]. Thrive Questionnaire Date Thrive assessed: 09/07/22 AUDIT C Alcohol Use Questionnaire (AUDIT-C) 1. How often do you have a drink containing alcohol?: Never Total Score: 0 Score Reviewed/Action Taken: Yes NATALIE-7 AMB Questionnaire NATALIE-7 Date NATALIE - 7 assessed: 09/07/22 Source: Developed by Drs. Reynold Castillo, Michael Downing and colleagues, with an educational johnson from [employer]. Review of Systems Const Denies chills, Denies headache(s) and Denies weight loss ENT Denies headache(s) Card Denies chest pain, Denies syncope, Denies irregular heart rhythm and Denies dyspnea Resp Denies chest congestion, Denies cough and Denies dyspnea GI Denies abdominal pain, Denies change in stool character, Denies nausea and Denies vomiting Musc Denies deformity and Denies joint swelling Neuro Denies syncope and Denies headache(s) Physical exam (Primary Care) Vital Signs: Last Vital Signs Pulse 80 03/11/23 11:19 BP 154/84 H 03/11/23 11:19 Pulse Ox 97 03/11/23 11:19 Oxygen Delivery Method Room Air 03/11/23 11:19 Tobacco/Smoking Status: Tobacco use Status Tobacco use date assessed 09/07/22 03/11/23 11:20 Patient Tobacco Use Status Current everyday Tobacco 03/11/23 11:20 Tobacco use type Cigarette 03/11/23 11:20 e-Cigarette/Vaping Use Never Used 03/11/23 11:20 PHQ-9: PHQ-9 Score PHQ-9: Total score 0 03/11/23 11:20 Depression Screening Interpretation: Negative Thrive Assessment: Date of Thrive Assessment Date Thrive assessed 09/07/22 03/11/23 11:20 Const General: cooperative, comfortable, no acute distress and alert Neck Neck: Yes no lymphadenopathy Thyroid: Thyroid normal Resp Effort & Inspection: normal respiratory effort Auscultation: clear to auscultation bilaterally Percussion: percussion normal Cardio Jugular venous distension: no JVD Palpation: normal PMI Rate: regular rate Rhythm: regular rhythm Heart sounds: S1 normal heart sound present and S2 normal heart sound present GI Inspection: Yes normal to inspection Palpation (GI): No hepatosplenomegaly present Skin General skin exam: no rashes or lesions noted Extrem General: Yes no clubbing, cyanosis or edema Assessment and Plan Assessment & Plan (1) Hyperlipidemia: Code(s): E78.5 - Hyperlipidemia, unspecified Plan: stable; same rx (2) Hyperthyroidism: Code(s): E05.90 - Thyrotoxicosis, unspecified without thyrotoxic crisis or storm Plan: stable; same rx (3) Hypertension: Code(s): I10 - Essential (primary) hypertension Plan: stable; same rx Orders: Orders Lipid Panel Today E78.5 - Hyperlipidemia, unspecified Thyroid Stimulating Hormone Today E03.9 - Hypothyroidism, unspecified Coding Level of Care Code Est Pt Level 4 (71884) Diagnoses Hyperlipidemia E78.5 Hyperthyroidism E05.90 Hypertension I10
== END 2023-03-11 11:39 | disposition home or self-care (01) ==
PROVIDERS: Visit Provider Internal Medicine
DX: E78.5 Hyperlipidemia, unspecified (principal); E05.90 Thyrotoxicosis, unspecified without thyrotoxic crisis or storm; I10 Essential (primary) hypertension
CPT/HCPCS: 99214

== ENCOUNTER 2023-03-19 11:16 | Outpatient (REF) | payer MEDICARE, OTHER, SELFPAY ==
[2023-03-19 13:30] LABS: MANUAL DIFF FLAG NO
[2023-03-19 13:32] LABS: Basophils Percent Auto 0.5 % (0-2); Eosinophils Absolute Auto 0.2 X10*3/uL (0.0-0.4); Eosinophils Percent Auto 2.3 % (0-4); Hematocrit 44.2 % (37.0-47.0); Hemoglobin 14.4 g/dl (12.0-16.0); Imm Gran Abs Auto 0.02 X10*3/uL (0.00-0.03); Imm Gran Pct Auto 0.3 % (0.0-0.4); Lymphocytes Absolute Auto 2.5 X10*3/uL (1.2-4.9); Lymphocytes Percent Auto 33.8 % (20-40); Mean Corpuscular HGB Conc 32.6 g/dl (31.0-35.0); Mean Corpuscular Hemoglobin 31.2 pg (27.0-33.0); Mean Corpuscular Volume 95.7 fL (80.0-98.0); Mean Platelet Volume 9.1 fL (9.4-12.3); Monocytes Absolute Auto 0.5 X10*3/uL (0.1-1.2); Monocytes Percent Auto 7.1 % (2-11); Neutrophils Absolute Auto 4.1 x10*3/uL (2.0-8.3); Platelet Count 338 X10*3/uL (160-400); Red Blood Count 4.62 X10*6/uL (4.20-5.50); Red Cell Distribution Width 12.6 % (11.0-16.0); White Blood Count 7.3 X10*3/uL (4.8-10.8)
[2023-03-19 14:03] LABS: Thyroid Stimulating Hormone 3.79 uIU/mL (0.32-4.0)
== END 2023-03-19 11:17 | disposition home or self-care (01) ==
LOC: HO.HMGCLDS 11:16
PROVIDERS: PCP Internal Medicine; Visit Provider Internal Medicine
DX: D64.9 Anemia, unspecified (principal); E03.9 Hypothyroidism, unspecified
CPT/HCPCS: 36415; 84443; 85025

== ENCOUNTER 2023-06-24 13:24 | Outpatient (REF) | payer MEDICARE, OTHER, SELFPAY ==
[2023-06-24 17:07] LABS: Free T4 (Free Thyroxine) 0.75 ng/dL (0.71-1.85); Thyroid Stimulating Hormone 0.89 uIU/mL (0.32-4.0)
[2023-06-25 07:29] LABS: Triiodothyronine T3 Free 3.1 pg/mL (2.3-4.2)
== END 2023-06-24 13:25 | disposition home or self-care (01) ==
LOC: HO.HMGCLDS 13:24
PROVIDERS: PCP Internal Medicine; Visit Provider Internal Medicine
DX: E05.20 Thyrotoxicosis with toxic multinodular goiter without thyrotoxic crisis or storm (principal)
CPT/HCPCS: 36415; 84439; 84443; 84481

== ENCOUNTER 2023-09-10 11:18 | Outpatient (AMB) | payer MEDICARE, OTHER, SELFPAY ==
[2023-09-10 11:21] VITALS: BP 150/80; PULSE 80; O2SAT 98; BMI 33.6
--- NOTE | 2023-09-10 11:21 | MHC.PC.OV ---
Vital Signs 09/10/23 11:21 Height 5 ft 4 in Weight 196 lb BMI 33.6 BP 150/80 H Blood Pressure Location Lt brachial Position Sitting Pulse 80 Pulse Source Pulse Oximeter Pulse Oximetry (%) 98 Oxygen Delivery Method Room Air Intake Visit Reasons: 6 month f/u Consultant Dietitian Required: No Pc Maintenance Technician: Not Required per policy Accompanied by: Self / Same As Patient Allergies cefuroxime [From Ceftin] Allergy (Unknown, Verified 09/10/23 11:22) Unknown epinephrine [Adrenalin] Allergy (Unknown, Verified 09/10/23 11:22) rapid heartbeat penicillin V Allergy (Unknown, Verified 09/10/23 11:22) Unknown Medication List - Last Reconciled 09/10/23 by Noam Rossi MD atorvastatin 10 mg PO DAILY lisinopril 2.5 mg PO DAILY methimazole 2.5 mg (1/2 x 5 mg) PO DAILY omeprazole 20 mg PO DAILY Tobacco use date assessed: 09/10/23 Fall risk assessment: No Falls in past year Last assessed Fall Risk: 09/10/23 Dental Screening Dental Screen Date: 09/10/23 Did you have a dental visit in the last 12 months?: Yes Did you have a dental problem in the last 6 months where you did not have access to dental care?: No Was dental information given to patient?: Patient has dentist HPI 6 month f/u HPI Details HTN hyperlip and hyperthyroidism on rx; compliant [facility] Medical History Multinodular thyroid Breast calcification, left Hypertension Hyperthyroidism Surgical History History of biopsy History of breast biopsy History of cholecystectomy Family History Father Esophageal cancer Mother No problems noted. Social History Housing: Condominium Alcohol intake: current Alcohol intake frequency: holidays/special occasions only Patient Tobacco Use Status: Current everyday Tobacco user Tobacco use type: Cigarette Cigarette Packs Per Day: 0.5 Cigarettes Per Day: 10 e-Cigarette/Vaping Use: Never Used Second Hand Smoke Exposure: Yes service: No Current occupational status: retired Cognitive needs: No Hearing needs: No Vision needs: No Questionnaire PHQ-9 Over the last 2 weeks, how often have you been bothered by any of the following problems? 1. Little interest or pleasure in doing things: not at all 2. Feeling down, depressed, or hopeless: not at all 3. Trouble falling or staying asleep, or sleeping too much: not at all 4. Feeling tired or having little energy: not at all 5. Poor appetite or overeating: not at all 6. Feeling bad about yourself - or that you are a failure or have let yourself or your family down: not at all 7. Trouble concentrating on things, such as reading the newspaper or watching television: not at all 8. Moving or speaking so slowly that other people could have noticed. Or the opposite - being so fidgety or restless that you have been moving around a lot more than usual: not at all 9. Thoughts that you would be better off or of hurting yourself in some way: not at all Total score: 0 Depression Screening Interpretation: Negative Depression Screening Done: Yes [id number] - PHQ-9 Billing: Yes Source: Developed by Drs. Reynold Castillo, Cecelia Baker, Michael Pantoja and colleagues, with an educational johnson from [employer]. Thrive Questionnaire Date Thrive assessed: 09/10/23 I am a: Patient What is your living situation today?: I have a steady place to live Within the past 12 months, did the food you bought not last and you didn't have the money to get more?: Never true Within the past 12 months, did you worry whether your food would run out before you got money to buy more?: Never true Do you have trouble paying for medicines?: No Do you have trouble getting transportation to medical appointments?: No Do you have trouble paying your heating and electricity bill?: No Do you have trouble taking care of your child, family member or friend?: No Do you have trouble with day-to-day activities such as bathing, preparing meals, shopping, managing finances, etc.?: No Are you currently unemployed and looking for a job?: No Are you interested in more education?: No Please select the resources that you would like help with: None THRIVE Score: 0 AUDIT C Alcohol Use Questionnaire (AUDIT-C) 1. How often do you have a drink containing alcohol?: Never Total Score: 0 Score Reviewed/Action Taken: Yes NATALIE-7 AMB Questionnaire NATALIE-7 Date NATALIE - 7 assessed: 09/10/23 Feeling nervous, anxious, or on edge: 0 = Not at all Not being able to stop or control worryin = Not at all Worrying too much about different things: 0 = Not at all Trouble relaxin = Not at all Being so restless that it is hard to sit still: 0 = Not at all Becoming easily annoyed or irritable: 0 = Not at all Feeling afraid as if something awful might happen: 0 = Not at all Total NATALIE-7 score (0-4 normal; 5-9 mild; 10-14 moderate; 15-21 severe): 0 Source: Developed by Drs. Reynold Castillo, Cecelia Baker, Michael Pantoja and colleagues, with an educational johnson from [employer]. NATALIE-7 Assessment Billing NATALIE-7 Assessment Tool: NATALIE-7 Assessment 24677 Review of Systems Const Denies chills, Denies headache(s) and Denies weight loss ENT Denies headache(s) Card Denies chest pain, Denies syncope, Denies irregular heart rhythm and Denies dyspnea Resp Denies chest congestion, Denies cough and Denies dyspnea GI Denies abdominal pain, Denies change in stool character, Denies nausea and Denies vomiting Musc Denies deformity and Denies joint swelling Neuro Denies syncope and Denies headache(s) Physical exam (Primary Care) Vital Signs: Last Vital Signs Pulse 80 09/10/23 11:21 BP 150/80 H 09/10/23 11:21 Pulse Ox 98 09/10/23 11:21 Oxygen Delivery Method Room Air 09/10/23 11:21 BMI result Body Mass Index 33.6 Tobacco/Smoking Status: Tobacco use Status Tobacco use date assessed 09/10/23 09/10/23 11:23 Patient Tobacco Use Status Current everyday Tobacco 09/10/23 11:23 Tobacco use type Cigarette 09/10/23 11:23 e-Cigarette/Vaping Use Never Used 09/10/23 11:23 PHQ-9: PHQ-9 Score PHQ-9: Total score 0 09/10/23 11:23 Depression Screening Interpretation: Negative Thrive Assessment: Date of Thrive Assessment Date Thrive assessed 09/10/23 09/10/23 11:23 Const General: cooperative, comfortable, no acute distress and alert Neck Neck: Yes no lymphadenopathy Thyroid: Thyroid normal Resp Effort & Inspection: normal respiratory effort Auscultation: clear to auscultation bilaterally Percussion: percussion normal Cardio Jugular venous distension: no JVD Palpation: normal PMI Rate: regular rate Rhythm: regular rhythm Heart sounds: S1 normal heart sound present and S2 normal heart sound present GI Inspection: Yes normal to inspection Palpation (GI): No hepatosplenomegaly present Skin General skin exam: no rashes or lesions noted Extrem General: Yes no clubbing, cyanosis or edema Assessment and Plan Assessment & Plan (1) Hyperlipidemia: Code(s): E78.5 - Hyperlipidemia, unspecified Plan: stable; do labs (2) Hypertension: Code(s): I10 - Essential (primary) hypertension Plan: stable; same rx (3) Hyperthyroidism: Code(s): E05.90 - Thyrotoxicosis, unspecified without thyrotoxic crisis or storm Plan: stable; do labs Orders: Orders Lipid Panel Today Z13.220 - Encounter for screening for lipoid disorders Complete Blood Count Auto Diff Today Z13.0 - Encounter for screening for diseases of the blood and blood-forming organs and certain disorders involving the immune mechanism Comprehensive Bement. Panel Fast Today Z13.9 - Encounter for screening, unspecified Thyroid Stimulating Hormone Today Z13.29 - Encounter for screening for other suspected endocrine disorder Coding Level of Care Code Est Pt Level 4 (17872) Diagnoses Hyperlipidemia E78.5 Hypertension I10 Hyperthyroidism E05.90 Additional Codes NATALIE-7 Assessment Billing - NATALIE-7 Assessment Tool: NATALIE-7 Assessment [id number] ([id number])
== END 2023-09-10 11:42 | disposition home or self-care (01) ==
PROVIDERS: PCP Internal Medicine; Visit Provider Internal Medicine
DX: E78.5 Hyperlipidemia, unspecified (principal); I10 Essential (primary) hypertension; E05.90 Thyrotoxicosis, unspecified without thyrotoxic crisis or storm
CPT/HCPCS: 99214

== ENCOUNTER 2023-09-30 08:07 | Outpatient (REF) | payer MEDICARE, OTHER, SELFPAY ==
[2023-09-30 10:25] LABS: MANUAL DIFF FLAG NO
[2023-09-30 10:35] LABS: Basophils Absolute Auto 0.1 X10*3/uL (0.0-0.2); Basophils Percent Auto 0.7 % (0-2); Eosinophils Absolute Auto 0.2 X10*3/uL (0.0-0.4); Eosinophils Percent Auto 2.9 % (0-4); Hematocrit 43.2 % (37.0-47.0); Hemoglobin 14.3 g/dl (12.0-16.0); Imm Gran Abs Auto 0.05 X10*3/uL (0.00-0.03); Imm Gran Pct Auto 0.7 % (0.0-0.4); Lymphocytes Absolute Auto 2.9 X10*3/uL (1.2-4.9); Lymphocytes Percent Auto 38.4 % (20-40); Mean Corpuscular HGB Conc 33.1 g/dl (31.0-35.0); Mean Corpuscular Hemoglobin 31.4 pg (27.0-33.0); Mean Corpuscular Volume 94.9 fL (80.0-98.0); Monocytes Absolute Auto 0.6 X10*3/uL (0.1-1.2); Monocytes Percent Auto 8.2 % (2-11); Neutrophils Absolute Auto 3.7 x10*3/uL (2.0-8.3); Neutrophils Percent Auto 49.1 % (45-73); Platelet Count 341 X10*3/uL (160-400); Red Blood Count 4.55 X10*6/uL (4.20-5.50); Red Cell Distribution Width 12.2 % (11.0-16.0); White Blood Count 7.6 X10*3/uL (4.8-10.8)
[2023-09-30 11:09] LABS: Alanine Aminotransferase 22 U/L (0-31); Alkaline Phosphatase 73 U/L (39-117); Anion Gap 15 (12-20); Aspartate Amino Transferase 21 U/L (5-31); Bilirubin Total 0.6 mg/dL (0.0-1.0); Blood Urea Nitrogen 10 mg/dL (9-16); Calcium 9.4 mg/dL (8.4-10.2); Carbon Dioxide 24 mmol/L (22-29); Chloride 106 mmol/L (96-108); Cholesterol 165 mg/dL (<200); Estimated Glomerular Filt Rate 54; Glucose Fasting 93 mg/dL (60-99); HDL Cholesterol 42 mg/dL (>40); LDL Cholesterol Calculated 74 mg/dL (<100); Potassium 4.1 mmol/L (3.3-5.1); Sodium 141 mmol/L (135-145); Triglycerides 248 mg/dL (<150)
[2023-09-30 11:12] LABS: Thyroid Stimulating Hormone 1.26 uIU/mL (0.32-4.0)
== END 2023-09-30 08:08 | disposition home or self-care (01) ==
LOC: HO.HMGCLDS 08:07
PROVIDERS: PCP Internal Medicine; Visit Provider Internal Medicine
DX: Z13.0 Encounter for screening for diseases of the blood and blood-forming organs and certain disorders involving the immune mechanism (principal); Z13.220 Encounter for screening for lipoid disorders; Z13.9 Encounter for screening, unspecified; Z13.29 Encounter for screening for other suspected endocrine disorder
CPT/HCPCS: 36415; 80053; 80061; 84443; 85025

== ENCOUNTER 2023-10-22 09:23 | Outpatient (REF) | payer MEDICARE, OTHER, SELFPAY ==
[2023-10-22 11:47] LABS: Alanine Aminotransferase 23 U/L (0-31); Aspartate Amino Transferase 22 U/L (5-31); Free T4 (Free Thyroxine) 0.66 ng/dL (0.71-1.85)
[2023-10-23 20:09] LABS: Triiodothyronine T3 Free 2.8 pg/mL (2.3-4.2)
== END 2023-10-22 09:24 | disposition home or self-care (01) ==
LOC: HO.HMGCLDS 09:23
PROVIDERS: PCP Internal Medicine; Visit Provider Internal Medicine
DX: E05.20 Thyrotoxicosis with toxic multinodular goiter without thyrotoxic crisis or storm (principal)
CPT/HCPCS: 36415; 84439; 84443; 84450; 84460; 84481

== ENCOUNTER 2024-01-24 14:13 | Outpatient (REF) | payer MEDICARE, OTHER, SELFPAY ==
[2024-01-24 18:05] LABS: Free T4 (Free Thyroxine) 0.69 ng/dL (0.71-1.85); Thyroid Stimulating Hormone 0.51 uIU/mL (0.32-4.0)
[2024-01-26 04:19] LABS: Triiodothyronine T3 Free 3.1 pg/mL (2.3-4.2)
== END 2024-01-24 14:14 | disposition home or self-care (01) ==
LOC: HO.HMGCLDS 14:13
PROVIDERS: PCP Internal Medicine; Visit Provider Internal Medicine
DX: E05.20 Thyrotoxicosis with toxic multinodular goiter without thyrotoxic crisis or storm (principal)
CPT/HCPCS: 36415; 84439; 84443; 84481

== ENCOUNTER 2024-03-12 11:14 | Outpatient (AMB) | payer MEDICARE, OTHER, SELFPAY ==
[2024-03-12 11:17] VITALS: BP 154/86; PULSE 86; O2SAT 97
--- NOTE | 2024-03-12 11:17 | MHC.PC.OV ---
Vital Signs 03/12/24 11:17 Height 5 ft 4 in BMI Reason not done Patient refused/unable BP 154/86 H Blood Pressure Location Lt brachial Position Sitting Pulse 86 Pulse Source Pulse Oximeter Pulse Oximetry (%) 97 Oxygen Delivery Method Room Air Intake Visit Reasons: f\u Automatic Chief Required: No Accompanied by: Self / Same As Patient Allergies cefuroxime [From Ceftin] Allergy (Unknown, Verified 03/12/24 11:17) Unknown epinephrine [Adrenalin] Allergy (Unknown, Verified 03/12/24 11:17) rapid heartbeat penicillin V Allergy (Unknown, Verified 03/12/24 11:17) Unknown Medication List - Last Reconciled 03/12/24 by Noam Rossi MD atorvastatin 10 mg PO DAILY lisinopril 2.5 mg PO DAILY methimazole 2.5 mg orally twice a week; omeprazole 20 mg PO DAILY Tobacco use date assessed: 09/10/23 Fall risk assessment: No Falls in past year Last assessed Fall Risk: 03/12/24 Dental Screening Dental Screen Date: 09/10/23 HPI f\u HPI Details hyperlipidemia on rx; doing well and compliant [facility] Medical History Multinodular thyroid Breast calcification, left Hypertension Hyperthyroidism Surgical History History of biopsy History of breast biopsy History of cholecystectomy Family History Father Esophageal cancer Mother No problems noted. Social History Housing: Condominium Alcohol intake: current Alcohol intake frequency: holidays/special occasions only Patient Tobacco Use Status: Current everyday Tobacco user Tobacco use type: Cigarette Cigarette Packs Per Day: 0.5 Cigarettes Per Day: 10 e-Cigarette/Vaping Use: Never Used Second Hand Smoke Exposure: Yes service: No Current occupational status: retired Cognitive needs: No Hearing needs: No Vision needs: No Questionnaire Thrive Questionnaire Date Thrive assessed: 09/10/23 AUDIT C Alcohol Use Questionnaire (AUDIT-C) 2. How many drinks containing alcohol do you have on a typical day when you are drinking?: 1 or 2 3. How often do you have six or more drinks on one occasion?: Never Total Score: 0 NATALIE-7 AMB Questionnaire NATALIE-7 Date NATALIE - 7 assessed: 09/10/23 Source: Developed by Drs. Reynold Castillo, Cecelia Baker, Michael Pantoja and colleagues, with an educational johnson from [employer]. Review of Systems Const Denies chills, Denies headache(s) and Denies weight loss ENT Denies headache(s) Card Denies chest pain, Denies syncope, Denies irregular heart rhythm and Denies dyspnea Resp Denies chest congestion, Denies cough and Denies dyspnea GI Denies abdominal pain, Denies change in stool character, Denies nausea and Denies vomiting Musc Denies deformity and Denies joint swelling Neuro Denies syncope and Denies headache(s) Physical exam (Primary Care) Vital Signs: Last Vital Signs Pulse 86 03/12/24 11:17 BP 154/86 H 03/12/24 11:17 Pulse Ox 97 03/12/24 11:17 Oxygen Delivery Method Room Air 03/12/24 11:17 Tobacco/Smoking Status: Tobacco use Status Tobacco use date assessed 09/10/23 03/12/24 11:22 Patient Tobacco Use Status Current everyday Tobacco 03/12/24 11:22 Tobacco use type Cigarette 03/12/24 11:22 e-Cigarette/Vaping Use Never Used 03/12/24 11:22 Thrive Assessment: Date of Thrive Assessment Date Thrive assessed 09/10/23 03/12/24 11:22 Const General: cooperative, comfortable, no acute distress and alert Neck Neck: Yes no lymphadenopathy Thyroid: Thyroid normal Resp Effort & Inspection: normal respiratory effort Auscultation: clear to auscultation bilaterally Percussion: percussion normal Cardio Jugular venous distension: no JVD Palpation: normal PMI Rate: regular rate Rhythm: regular rhythm Heart sounds: S1 normal heart sound present and S2 normal heart sound present GI Inspection: Yes normal to inspection Palpation (GI): No hepatosplenomegaly present Skin General skin exam: no rashes or lesions noted Extrem General: Yes no clubbing, cyanosis or edema Immunizations pneumoc 20-steven conj-dip cr(PF) 0.5 mL IM syringe Performing Provider: Noam Rossi MD [facility] Administered by: DENIS Gonzalez on 03/12/24 11:53 Dose Route Admin Location Dispensed Lot Number Expiration Date NDC Coat Presser 0.5 mL IM Left Deltoid 0.5 mL [id number] 04/12/25 5597-0402-45 Danger Room Gaming/ADOP VIS Given Date VIS Provided VIS Publication Date 03/12/24 Single Vaccine 21 Eligibility Eligibility Date Funding Source Not [facility] Eligible 03/12/24 Private Coding Level of Care Code Est Pt Level 3 (71102) Diagnoses Hyperlipidemia E78.5 Assessment & Plan Assessment & Plan (1) Hyperlipidemia: Code(s): E78.5 - Hyperlipidemia, unspecified Category: Medical Plan: stable; same rx Orders: Orders Lipid Panel Today Z13.220 - Encounter for screening for lipoid disorders Pneumococcal 20 Immunization Today Z23 - Encounter for immunization Medications: Changed From methimazole 2.5 mg (1/2 x 5 mg) PO DAILY 45 tabs 0RF To methimazole 2.5 mg orally twice a week;
== END 2024-03-12 11:50 | disposition home or self-care (01) ==
LOC: HO.HMCH 11:14
PROVIDERS: PCP Internal Medicine; Visit Provider Internal Medicine
DX: E78.5 Hyperlipidemia, unspecified (principal); Z23 Encounter for immunization

== ENCOUNTER → 2024-03-12 11:14 | Outpatient (BNVA) | payer MEDICARE, OTHER, SELFPAY | PROVIDERS: PCP Internal Medicine; Visit Provider Internal Medicine | DX: Z23 Encounter for immunization (principal); E78.5 Hyperlipidemia, unspecified | CPT/HCPCS: 90471; 90677; 99212 ==

== ENCOUNTER 2024-05-22 14:04 | Outpatient (REF) | payer MEDICARE, OTHER, SELFPAY ==
[2024-05-22 16:44] LABS: Free T4 (Free Thyroxine) 0.84 ng/dL (0.71-1.85); Thyroid Stimulating Hormone 0.44 uIU/mL (0.32-4.0)
[2024-05-24 02:53] LABS: Triiodothyronine T3 Free 3.3 pg/mL (2.3-4.2)
== END 2024-05-22 14:05 | disposition home or self-care (01) ==
LOC: HO.HMGCLDS 14:04
PROVIDERS: PCP Internal Medicine; Visit Provider Internal Medicine
DX: E05.20 Thyrotoxicosis with toxic multinodular goiter without thyrotoxic crisis or storm (principal)
CPT/HCPCS: 36415; 84439; 84443; 84481

== ENCOUNTER 2024-07-13 11:10 | Outpatient (AMB) | payer MEDICARE, OTHER, SELFPAY ==
--- NOTE | 2024-07-13 11:13 | MHC.PC.OV ---
Vital Signs 07/13/24 11:15 Height 5 ft 4 in BMI Reason not done Patient refused/unable BP 140/80 H Blood Pressure Location Lt brachial Position Sitting Pulse 84 Pulse Source Pulse Oximeter Temp 97.1 F Temp Source Temporal Artery Scan Pulse Oximetry (%) 98 Oxygen Delivery Method Room Air Intake Visit Reasons: f/u Intake Note: Patient is here to follow up on HTN, Hyperthyroidism, HLD. Software Applications Designer Required: No Human Resources Safety Manager: Not Required per policy Accompanied by: Self / Same As Patient Allergies cefuroxime [From Ceftin] Allergy (Unknown, Verified 07/13/24 11:15) Unknown epinephrine [Adrenalin] Allergy (Unknown, Verified 07/13/24 11:15) rapid heartbeat penicillin V Allergy (Unknown, Verified 07/13/24 11:15) Unknown Tobacco use date assessed: 07/13/24 Fall risk assessment: No Falls in past year Last assessed Fall Risk: 07/13/24 Dental Screening Dental Screen Date: 07/13/24 Did you have a dental visit in the last 12 months?: Yes Did you have a dental problem in the last 6 months where you did not have access to dental care?: No Was dental information given to patient?: Patient has dentist HPI f/u HPI Details hyperlipidemia hypertension and hyperthyroidism on rx; sees endo for thyroid and doing well [facility] Medical History Multinodular thyroid Breast calcification, left Hypertension Hyperthyroidism Surgical History History of biopsy History of breast biopsy History of cholecystectomy Family History Father Esophageal cancer Mother No problems noted. Social History (Updated 07/13/24 @ 11:19 by ENAL Lerner) Housing: Condominium Alcohol intake: current Alcohol intake frequency: holidays/special occasions only Patient Tobacco Use Status: Current everyday Tobacco user Tobacco use type: Cigarette Cigarette Packs Per Day: 0.25 Cigarettes Per Day: 1 e-Cigarette/Vaping Use: Never Used Second Hand Smoke Exposure: Yes service: No Current occupational status: retired Cognitive needs: No Hearing needs: No Vision needs: No Questionnaire PHQ-9 Over the last 2 weeks, how often have you been bothered by any of the following problems? 1. Little interest or pleasure in doing things: not at all 2. Feeling down, depressed, or hopeless: not at all 3. Trouble falling or staying asleep, or sleeping too much: not at all 4. Feeling tired or having little energy: not at all 5. Poor appetite or overeating: not at all 6. Feeling bad about yourself - or that you are a failure or have let yourself or your family down: not at all 7. Trouble concentrating on things, such as reading the newspaper or watching television: not at all 8. Moving or speaking so slowly that other people could have noticed. Or the opposite - being so fidgety or restless that you have been moving around a lot more than usual: not at all 9. Thoughts that you would be better off or of hurting yourself in some way: not at all Total score: 0 Depression Screening Interpretation: Negative Depression Screening Done: Yes Source: Developed by Drs. Reynold Castillo, Cecelia Baker, Michael Pantoja and colleagues, with an educational johnson from [employer] Thrive Questionnaire Date Thrive assessed: 07/13/24 I am a: Patient What is your living situation today?: I have a steady place to live Within the past 12 months, did the food you bought not last and you didn't have the money to get more?: Never true Within the past 12 months, did you worry whether your food would run out before you got money to buy more?: Never true Do you have trouble paying for medicines?: No Do you have trouble getting transportation to medical appointments?: No Do you have trouble paying your heating and electricity bill?: No Do you have trouble taking care of your child, family member or friend?: No Do you have trouble with day-to-day activities such as bathing, preparing meals, shopping, managing finances, etc.?: No Are you currently unemployed and looking for a job?: No Are you interested in more education?: No Please select the resources that you would like help with: None Currently or been in a relationship where the following occur: No concerns reported THRIVE Score: 0 AUDIT C Alcohol Use Questionnaire (AUDIT-C) 2. How many drinks containing alcohol do you have on a typical day when you are drinking?: 1 or 2 3. How often do you have six or more drinks on one occasion?: Never Total Score: 0 NATALIE-7 AMB Questionnaire NATALIE-7 Date NATALIE - 7 assessed: 07/13/24 Feeling nervous, anxious, or on edge: 0 = Not at all Not being able to stop or control worryin = Not at all Worrying too much about different things: 0 = Not at all Trouble relaxin = Not at all Being so restless that it is hard to sit still: 0 = Not at all Becoming easily annoyed or irritable: 0 = Not at all Feeling afraid as if something awful might happen: 0 = Not at all Total NATALIE-7 score (0-4 normal; 5-9 mild; 10-14 moderate; 15-21 severe): 0 Source: Developed by Drs. Reynold Castillo, Cecelia Baker, Michael Pantoja and colleagues, with an educational johnson from [employer] Review of Systems Const Denies chills, Denies headache(s) and Denies weight loss ENT Denies headache(s) Card Denies chest pain, Denies syncope, Denies irregular heart rhythm and Denies dyspnea Resp Denies chest congestion, Denies cough and Denies dyspnea GI Denies abdominal pain, Denies change in stool character, Denies nausea and Denies vomiting Musc Denies deformity and Denies joint swelling Neuro Denies syncope and Denies headache(s) Physical exam (Primary Care) Vital Signs: Last Vital Signs Temp 97.1 F 07/13/24 11:15 Pulse 84 07/13/24 11:15 BP 140/80 H 07/13/24 11:15 Pulse Ox 98 07/13/24 11:15 Oxygen Delivery Method Room Air 07/13/24 11:15 Tobacco/Smoking Status: Tobacco use Status Tobacco use date assessed 07/13/24 07/13/24 11:20 Patient Tobacco Use Status Current everyday Tobacco 07/13/24 11:20 Tobacco use type Cigarette 07/13/24 11:20 e-Cigarette/Vaping Use Never Used 07/13/24 11:20 PHQ-9: PHQ-9 Score PHQ-9: Total score 0 07/13/24 11:20 Depression Screening Interpretation: Negative Thrive Assessment: Date of Thrive Assessment Date Thrive assessed 07/13/24 07/13/24 11:20 Currently or been in a relationship where the following occur: No concerns reported Const General: cooperative, comfortable, no acute distress and alert Neck Neck: Yes no lymphadenopathy Thyroid: Thyroid normal Resp Effort & Inspection: normal respiratory effort Auscultation: clear to auscultation bilaterally Percussion: percussion normal Cardio Jugular venous distension: no JVD Palpation: normal PMI Rate: regular rate Rhythm: regular rhythm Heart sounds: S1 normal heart sound present and S2 normal heart sound present GI Inspection: Yes normal to inspection Palpation (GI): No hepatosplenomegaly present Skin General skin exam: no rashes or lesions noted Extrem General: Yes no clubbing, cyanosis or edema Coding Level of Care Code Est Pt Level 4 (89255) Diagnoses Hyperlipidemia E78.5 Hypertension I10 Hyperthyroidism E05.90 Assessment & Plan Assessment & Plan (1) Hyperlipidemia: Code(s): E78.5 - Hyperlipidemia, unspecified Category: Medical Plan: stable; same rx (2) Hypertension: Code(s): I10 - Essential (primary) hypertension Category: Medical Plan: stable; same rx (3) Hyperthyroidism: Code(s): E05.90 - Thyrotoxicosis, unspecified without thyrotoxic crisis or storm Category: Medical Plan: as per endo Orders: Orders Lipid Panel Today Z13.220 - Encounter for screening for lipoid disorders Complete Blood Count Auto Diff Today Z13.0 - Encounter for screening for diseases of the blood and blood-forming organs and certain disorders involving the immune mechanism Comprehensive [place]. Panel Fast Today Z13.9 - Encounter for screening, unspecified
[2024-07-13 11:15] VITALS: BP 140/80; PULSE 84; TEMP 36.2; O2SAT 98
== END 2024-07-13 11:38 | disposition home or self-care (01) ==
PROVIDERS: PCP Internal Medicine; Visit Provider Internal Medicine
DX: E78.5 Hyperlipidemia, unspecified (principal); I10 Essential (primary) hypertension; E05.90 Thyrotoxicosis, unspecified without thyrotoxic crisis or storm

== ENCOUNTER → 2024-07-13 11:10 | Outpatient (BNVA) | payer MEDICARE, OTHER, SELFPAY | PROVIDERS: PCP Internal Medicine; Visit Provider Internal Medicine | DX: E78.5 Hyperlipidemia, unspecified (principal); E05.90 Thyrotoxicosis, unspecified without thyrotoxic crisis or storm; I10 Essential (primary) hypertension | CPT/HCPCS: 99212 ==

== ENCOUNTER 2024-07-23 08:29 | Outpatient (REF) | payer MEDICARE, OTHER, SELFPAY ==
[2024-07-23 10:09] LABS: MANUAL DIFF FLAG NO
[2024-07-23 10:12] LABS: Basophils Absolute Auto 0.1 X10*3/uL (0.0-0.2); Basophils Percent Auto 0.6 % (0-2); Eosinophils Absolute Auto 0.2 X10*3/uL (0.0-0.4); Hematocrit 42.7 % (37.0-47.0); Hemoglobin 13.9 g/dl (12.0-16.0); Imm Gran Abs Auto 0.02 X10*3/uL (0.00-0.03); Imm Gran Pct Auto 0.3 % (0.0-0.4); Lymphocytes Absolute Auto 3.1 X10*3/uL (1.2-4.9); Lymphocytes Percent Auto 38.9 % (20-40); Mean Corpuscular HGB Conc 32.6 g/dl (31.0-35.0); Mean Corpuscular Hemoglobin 30.6 pg (27.0-33.0); Mean Corpuscular Volume 94.1 fL (80.0-98.0); Mean Platelet Volume 9.3 fL (9.4-12.3); Monocytes Absolute Auto 0.6 X10*3/uL (0.1-1.2); Monocytes Percent Auto 7.5 % (2-11); Neutrophils Percent Auto 50.7 % (45-73); Platelet Count 374 X10*3/uL (160-400); Red Blood Count 4.54 X10*6/uL (4.20-5.50); Red Cell Distribution Width 12.9 % (11.0-16.0)
[2024-07-23 10:29] LABS: Alanine Aminotransferase 59 U/L (0-31); Albumin Level 4.3 g/dL (3.5-5.0); Alkaline Phosphatase 71 U/L (39-117); Anion Gap 13 (12-20); Aspartate Amino Transferase 41 U/L (5-31); Bilirubin Total 0.7 mg/dL (0.0-1.0); Blood Urea Nitrogen 18 mg/dL (9-16); Calcium 9.5 mg/dL (8.4-10.2); Carbon Dioxide 27 mmol/L (22-29); Chloride 107 mmol/L (96-108); Cholesterol 160 mg/dL (<200); Estimated Glomerular Filt Rate 51; Glucose Fasting 113 mg/dL (60-99); HDL Cholesterol 42 mg/dL (>40); LDL Cholesterol Calculated 84 mg/dL (<100); Potassium 4.1 mmol/L (3.3-5.1); Sodium 143 mmol/L (135-145); Total Protein 7.7 g/dL (6.5-8.0); Triglycerides 173 mg/dL (<150)
== END 2024-07-23 08:30 | disposition home or self-care (01) ==
LOC: HO.HMGCLDS 08:29
PROVIDERS: PCP Internal Medicine; Visit Provider Internal Medicine
DX: Z13.220 Encounter for screening for lipoid disorders (principal); Z13.0 Encounter for screening for diseases of the blood and blood-forming organs and certain disorders involving the immune mechanism; Z13.9 Encounter for screening, unspecified
CPT/HCPCS: 36415; 80053; 80061; 85025

== ENCOUNTER 2024-11-23 12:49 | Outpatient (REF) | payer MEDICARE, OTHER, SELFPAY ==
--- NOTE | ~2024-11-23 | US_ITS ---
EXAMINATION: US THYROID CLINICAL INFORMATION: Toxic multinodular goiter. COMPARISON: July 23, 2022. TECHNIQUE: Linear transducer grayscale and color Doppler examination with attention to the region of the thyroid. FINDINGS: SIZE: Measurements of the thyroid lobes and nodules are given in sagittal, anteroposterior and transverse dimensions respectively. Right Thyroid Lobe: 5.4 x 2.6 x 1.4 cm, volume 10.3 mL. Previous: 6.0 x 2.6 x 1.4 cm, volume: 11.5 cc. Parenchyma: The gland echotexture is heterogeneous. Thyroid vascularity is normal. Left Thyroid Lobe: 4.1 x 1.6 x 1.4 cm, volume 4.8 mL. Previous: 5.7 x 2.5 x 1.6 cm, volume: 12.3 cc Parenchyma: The gland echotexture is heterogeneous. Thyroid vascularity is normal. Isthmus: 1.0 cm in maximum AP dimension. Previous: 0.3 cm. Estimated total number of nodules greater than or equal to 1 cm: 5. Lead Android Developer nodules are described as follows: 1. Location: Right upper midportion junction. Size: 1.3 x 1.0 x 1.3 cm, volume 0.63 mL. Previous: 1.6 x 1.3 x 1.0 cm and volume 1.02 cc. Nodule characteristics: Composition: Solid/almost completely solid (2). Echogenicity: Hypoechoic (2). Shape: Not taller than wide (0). Margins: Smooth (0). Echogenic Foci: Punctate echogenic foci (3). ACR TI-RADS total points: 7 ACR TI-RADS category: 5 2. Location: Right midportion. Size: 1.0 x 0.6 x 0.8 cm, volume 0.9 mL. Previous: 1.3 x 0.5 x 1.0 cm, volume: 0.34 cc. Nodule characteristics: Composition: Solid/almost completely solid (2). Echogenicity: Isoechoic (1). Shape: Not taller than wide (0). Margins: Smooth (0). Echogenic Foci: None (0). ACR TI-RADS total points: 3 ACR TI-RADS category: 3 3. Location: Right posterior lower pole. Size: 1.6 x 1.6 x 1.6 cm, volume 2.14 mL. New since prior exam. Nodule characteristics: Composition: Solid (2). Echogenicity: Hypoechoic (2). Shape: Not taller than wide (0). Margins: Extrathyroidal extension (3). Echogenic Foci: None (0). ACR TI-RADS total points: 7 ACR TI-RADS category: 5 4. Location: Right lower isthmus. Size: 2.1 x 1.0 x 2.3 cm, volume 2.44 mL. Previous: 2.2 x 1.2 x 1.3 cm: Volume: 1.7 cc. Nodule characteristics: Composition: Mixed cystic and solid (1). Echogenicity: 1 Shape: Not taller than wide (0). Margins: Smooth (0). Echogenic Foci: Punctate echogenic foci (3). ACR TI-RADS total points: 5 ACR TI-RADS category: 4 5. Location: [Left Midportion. Size: 1.0 x 0.9 x 1.4 cm, volume 1.08 mL. Previous: 2.5 x 1.1 x 1.3 cm. Volume: 1.99 cc. Nodule characteristics: Composition: Solid (2). Echogenicity: Isoechoic (1). Shape: Not taller than wide (0). Margins: Smooth (0). Echogenic Foci: Punctate echogenic foci (3). ACR TI-RADS total points: 6 ACR TI-RADS category: 4 NODES: No lymphadenopathy is seen in the tissue surrounding the thyroid gland. US/US thyroid IMPRESSION: ACR TI-RADS category: 5 and 4 ACR TI-RADS RECOMMENDATION REFERENCE: Ultrasound-guided fine-needle aspiration, followup ultrasound, no further follow up. * TR1 (0 point) and TR2 (2 points): No FNA or follow up. * TR3 (3 points): FNA if more than or equal to 2.5 cm in maximum dimension, followup ultrasound in 1, 3 and 5 years if 1.5 to 2.4 cm in maximum dimension. * TR4 (4-6 points): FNA if more than or equal to 1.5 cm in maximum dimension, followup ultrasound in 1, 2, 3 and 5 years if 1 to 1.4 cm in maximum dimension. * TR5 (more than or equal to 7 points): FNA if more than or equal to 1 cm in maximum dimension, followup ultrasound every year for 5 years if 0.5 to 0.9 cm in maximum dimension. * TR3, TR4 or TR5 nodules that are below the size threshold for followup receive no follow up. Electronically signed by: Long Estrada MD 11/23/2024 02:16 PM EDT
== END 2024-11-23 12:50 | disposition home or self-care (01) ==
LOC: HO.HMGCX 12:49
PROVIDERS: PCP Internal Medicine; Visit Provider Internal Medicine
DX: E05.20 Thyrotoxicosis with toxic multinodular goiter without thyrotoxic crisis or storm (principal)
CPT/HCPCS: 76536

== ENCOUNTER → 2024-11-23 12:55 | Outpatient (BNV) | payer MEDICARE, OTHER, SELFPAY | PROVIDERS: PCP Internal Medicine; Visit Provider Radiology Diagnostic Radiology | DX: E05.20 Thyrotoxicosis with toxic multinodular goiter without thyrotoxic crisis or storm (principal) | CPT/HCPCS: 76536 ==

== ENCOUNTER 2025-01-18 10:45 | Outpatient (REF) | payer MEDICARE, OTHER, SELFPAY ==
--- OUTSIDE RECORDS SUMMARY | 2025-01-18 13:08 | XMS_ITS | Clinical Summary ---
Author Organization [facility] Address [address] [place] [address] Phone Care Team Providers Care Tennis [employer] Instructor Name Role Phone Domo Laird MD Primary Care Provider [phone] Allergies Active Allergy Reactions Criticality Noted Date Comments Cefdinir Hives 04/16/2023 Epinephrine Palpitations Low 04/16/2023 Penicillin 04/16/2023 Medications omeprazole (PRILOSEC) 20 MG capsule Take 1 capsule by mouth every morning. 3 Active lisinopril (PRINIVIL,ZESTR IL) 2.5 MG tablet Take 1 tablet by mouth every morning. 3 Active atorvastatin (LIPITOR) 10 MG tablet Take 1 tablet by mouth every morning. 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 Unfortunately I still do not have her old records from [facility]. She was started on 2.5 mg methimazole daily around 2020 what she has been taking regularly. She was seen by Dr. Fields in the spring who ordered a thyroid ultrasound which was done on 07/23/2022. Subsequently she had FNA of 2 left nodules and 3 right nodules at [facility], all were benign. Patient denies any compression symptoms in the thyroid bed. Her TSH level became slightly elevated in early 02/2023 and high normal in early 03/2023 while taking 2.5 mg methimazole daily. We decreased her dose to 2.5 mg 3 times a week and 04/2023. Further decrease in her methimazole to 2.5 mg twice a week in 10/2023. She is clinically and biochemically euthyroid on this dose. Last TSH low normal at 0.44 with normal thyroid hormone levels on 05/22/2024. Reviewed symptoms of hypo and hyperthyroidism, patient to call if concerned. -Repeat TFTs and thyroid ultrasound in 6 months. Assessment & Plan (11/10/2023 8:12 PM EDT): 78-year-old woman was diagnosed with hyperthyroidism around 2019 when I first met her. Unfortunately I still do not have her old records from [facility]. She was started on 2.5 mg methimazole daily around 2020 what she has been taking regularly. I saw her at [facility] about 1.5 years ago when we were planning to do a thyroid ultrasound which was delayed because of my move to a new practice. She was seen by Dr. Fields in the spring who ordered a thyroid ultrasound which was done on 07/23/2022. Subsequently she had FNA of 2 left nodules and 3 right nodules at [facility], all were benign. Patient denies any compression symptoms in the thyroid bed. Her TSH level became slightly elevated in early 02/2023 and high normal in early 03/2023 while taking 2.5 mg methimazole daily. We decreased her dose to 2.5 mg 3 times a week and 04/2023. Her TFTs were normal on this dose in 06/2023. She gained another 10 pounds since 04/2023. Her last TSH was normal at 1.0 with low free T4 of 0.66 and low normal free T3 of 2.8 as of 10/22/2023 while taking 2.5 mg methimazole 3 times a week. She is scared to stop the methimazole because of worrying about the recurrent thyrotoxicosis symptoms. We decided to decrease her dose to 2.5 mg twice a week and repeat TFTs in 2 to 3 months. Reviewed symptoms of hypo and hyperthyroidism, patient to call if concerned. We will repeat her ultrasound in the spring 2024. Assessment & Plan (05/03/2023 5:41 PM EST): 78-year-old woman was diagnosed with hyperthyroidism around 2019. Unfortunately I did not have her old records from [facility] when I first met her around 2019. She was started on 2.5 mg methimazole daily around 2020 what she has been taking regularly. I saw her at [facility] about a year ago when we were planning to do a thyroid ultrasound which was delayed because of my move to a new practice. She was seen by Dr. Fields in the spring of this year who ordered a thyroid ultrasound which was done on 07/23/2022. Subsequently she had FNA of 2 left nodules and 3 right nodules at [facility], all were benign. Patient denies any compression symptoms in the thyroid bed. Her TSH level became slightly elevated in early February and high normal in early March while taking 2.5 mg methimazole daily. She is clinically euthyroid. We discussed that we could try decreasing the methimazole to 2.5 mg 3 times a week on Saturday, Saturday and Saturday and repeat TFTs in 6 to 8 weeks. Reviewed symptoms of hypo and hyperthyroidism, patient to call if concerned. We will likely repeat the ultrasound in 1 to 2 years. Encounters Date Type Department Care Team Description 11/26/2024 Orders Only [facility] [address] [place] [address] [place] [id number] Starla Weaver MA Toxic multinodul goiter from Last 3 Months Family History Medical History Relation Comments Dementia Brother Esophageal cancer Father Stroke Mother Relation Status Comments Brother Father Mother Social History Tobacco Use Types Packs/Day Years Used Date Smoking Tobacco: Every Day Cigarettes Smokeless Tobacco: Never Alcohol Use Standard Drinks/Week Comments Never 0 (1 standard drink = 0.6 oz pur e alcohol) Education Answer Date Recorded Are you interested in more education? Not on kitty e 03/11/2023 Are you concerned about learning? Not on file 03/11/2023 No 03/11/2023 No 03/11/2023 Digital Access Answer Date Recorded No 03/11/2023 No 03/11/2023 Reliable internet access at home? Not on file 03/11/2023 Device with a working camera? Not on file Comments Unknown Sex and Gender Information Value Date Recorded Sex Assigned at Not on file Legal Sex Female 3:02 PM EDT Gender Identity Not on file Sexual Orientation Not on file Last Filed Vital Signs Vital Sign Reading Time Taken Comments Blood Pressure 126/90 06/02/2024 10:53 AM EST Pulse 81 06/02/2024 10:53 AM EST Temperature 36.5 C (97.7 F) 04/16/2023 11:16 AM EST Respiratory Rate - - Oxygen Saturation 98% 06/02/2024 10:53 AM EST Inhaled Oxygen Concentration - - Weight 93.4 kg (206 lb) 06/02/2024 10:53 AM EST Height 160.8 cm (5' 3.3 ) 04/16/2023 11:16 AM ES T Body Mass Index 36.15 04/16/2023 11:16 AM EST Plan of Treatment Upcoming Encounters Date Type Department Care Team (Late st Contact Info) Description 01/26/2025 11:40 AM EDT Office Visit [facility] [address] [place] [phone] Kaelyn Mckay MD [address] [place] [phone] [email or web address] Health Maintenance Due Date Last Done Comments Adult Td,Tdap Booster 1945 LIPID PANEL 1947 POTASSIUM LEVEL 1947 DEPRESSION SCREENING 1959 SMOKING Hx and SMOKELESS TOB ACCO SCREENING 01/26/1960 HEPATITIS C SCREENING 1965 PNEUMOCOCCAL VACCINES (50+ y ears) (1 of 2 - PCV) 1966 ZOSTER VACCINES (1 of 2) 1997 OSTEOPOROSIS SCREENING INITI AL (ONE-TIME) 01/26/2012 RSV VACCINE (1 - 1-dose 75+ series) 2022 INFLUENZA VACCINE (#1) 2024 COVID-19 VACCINE ( - 2023-2 5 season) 2025 CREATININE LEVEL 07/23/2025 07/23/2024 HEPATITIS A VACCINES Aged Out No long er eligible based on patient's age to complete this topic HIB VACCINES Aged Out No longer eligi ble based on patient's age to complete this topic MENINGOCOCCAL VACCINES (ACWY) Aged Out No longer eligible based on patient's age to complete this topic MENINGOCOCCAL VACCINES (B) Aged Out N o longer eligible based on patient's age to complete this topic Medical Devices Not on file Procedures Procedure Name Priority Date/Time Associated Diagnosis Comments US THYROID GLAND Routine 11/23/2024 3:38 PM EDT Toxic multinodul goiter COMPREHENSIVE METABOLIC PANEL Routine 07/23/2024 1:23 PM EDT from Last 3 Months or Most Recently Relevant to Health Maintenance Results * US Thyroid Gland (11/23/2024 3:38 PM EDT) Anatomical Region Laterality Modality Neck, Head, Chest Ultrasound Re gnostic Kaelyn Mckay MD [facility] US THYROID Final Result * Comprehensive metabolic panel (07/23/2024 1:23 PM EDT) Historical Provider LAB BLOOD ORDERABLES Phoebe l Result from Last 3 Months or Most Recently Relevant to Health Maintenance Insurance MEDICARE PART A & B [employer] MEDIC[employer] ENHANCE SUPPLEMENT [facility] Address: [facility] [id number] [place] [id number] MEDICARE PART A & B Member Subscriber Plan / Payer (Ef fective 2012-Present) Name:Sherita Price Member ID:[id number] Relation to Subscriber:Self Name:Sherita Price Subscriber ID:[id number] Payer ID:[id number] Group ID:Not on file Type:Medicare Address: [employer] [facility] [address] [id number] [employer] MEDIC[employer] ENHANCE SUPPLEMENT [facility] Address: [facility] [id number] [place] [address] MEDICARE PART A & B [facility] MEDICARE ENHANCE SUPPLEMENT MEDICARE PART A & B [facility] MEDICARE ENHANCE SUPPLEMENT MEDICARE PART A & B Member Subscriber Plan / Payer ( fective 2012-Present) Name:Sherita Price Member ID:[id number] Relation to Subscriber:Self Name:Sherita Price Subscriber ID:[id number] Payer ID:[id number] Group ID:Not on file Type:Medicare Address: [employer] [address] [place] [phone] [facility] MEDICARE ENHANCE SUPPLEMENT MEDICARE PART A & B Member Subscriber Plan / Payer ( fective 2012-Present) Name:Sherita Price Member ID:[id number] Relation to Subscriber:Self Name:Sherita Priec Subscriber ID:[id number] Payer ID:[id number] Group ID:Not on file Type:Medicare Address: [employer] [address] [facility] MEDICARE ENHANCE SUPPLEMENT [facility] Address: [address] [place] [address] Care Teams Tennis Camp Instructor Relationship Specialty Start Date End Date Domo Laird MD [address] [place] [address] [place] [address] PCP - General Internal Medicine 07/29/24 Additional Source Comments The information contained in this document represents components of the legal health record. It is not the complete legal health record.[facility]
[2025-01-18 14:10] LABS: MANUAL DIFF FLAG NO
[2025-01-18 14:14] LABS: Hematocrit 41.9 % (37.0-47.0); Hemoglobin 14.0 g/dl (12.0-16.0); Imm Gran Abs Auto 0.03 X10*3/uL (0.00-0.03); Imm Gran Pct Auto 0.4 % (0.0-0.4); Lymphocytes Absolute Auto 2.5 X10*3/uL (1.2-4.9); Mean Corpuscular HGB Conc 33.4 g/dl (31.0-35.0); Mean Corpuscular Hemoglobin 31.0 pg (27.0-33.0); Mean Corpuscular Volume 92.9 fL (80.0-98.0); NRBC Abs Auto 0.000 X10*3/uL (0.0-0.012); NRBC Pct Auto 0.0 /100WBC (0.0-0.2); Platelet Count 339 X10*3/uL (160-400); Red Blood Count 4.51 X10*6/uL (4.20-5.50); White Blood Count 7.0 X10*3/uL (4.8-10.8)
[2025-01-18 15:02] LABS: Alanine Aminotransferase 47 U/L (0-31); Aspartate Amino Transferase 37 U/L (5-31)
[2025-01-18 15:22] LABS: Free T4 (Free Thyroxine) 0.76 ng/dL (0.71-1.85); Thyroid Stimulating Hormone 0.78 uIU/mL (0.32-4.0)
== END 2025-01-18 10:46 | disposition home or self-care (01) ==
LOC: HO.HMGCLDS 10:45
PROVIDERS: PCP Internal Medicine; Visit Provider Internal Medicine
DX: E05.20 Thyrotoxicosis with toxic multinodular goiter without thyrotoxic crisis or storm (principal)
CPT/HCPCS: 36415; 84439; 84443; 84450; 84460; 84481; 85025

== ENCOUNTER 2025-03-03 12:35 | Outpatient (AMB) | payer MEDICARE, OTHER, SELFPAY ==
[2025-03-03 12:54] VITALS: BP 132/90; PULSE 79; O2SAT 98
--- NOTE | 2025-03-03 12:54 | A.OFFPC_ITS ---
Vital Signs 03/03/25 12:54 Height 5 ft 4 in BMI Reason not done Patient refused/unable BP 132/90 H Blood Pressure Location Lt brachial Position Sitting Pulse 79 Pulse Source Pulse Oximeter Pulse Oximetry (%) 98 Oxygen Delivery Method Room Air Intake Visit Reasons: ALEX DR Rossi/ follow up Paid Intern Required: No Accompanied by: Self / Same As Patient Allergies cefuroxime (From Ceftin) Allergy (Unknown, Verified 03/03/25 13:17) Unknown epinephrine (Adrenalin) Allergy (Unknown, Verified 03/03/25 13:17) rapid heartbeat penicillin V Allergy (Unknown, Verified 03/03/25 13:17) Unknown atorvastatin Adverse Reaction (Intermediate, Verified 03/03/25 13:21) myalgia, elevated LFTs Medication List - Last Reconciled 03/03/25 by Domo Laird MD lisinopril 2.5 mg PO DAILY methimazole 2.5 mg orally twice a week; omeprazole 20 mg PO DAILY Tobacco use date assessed: 03/03/25 Fall risk assessment: No Falls in past year Last assessed Fall Risk: 03/03/25 Dental Screening Dental Screen Date: 03/03/25 Did you have a dental visit in the last 12 months?: Yes Did you have a dental problem in the last 6 months where you did not have access to dental care?: No Was dental information given to patient?: Patient has dentist HPI ALEX DR Rossi/ follow up HPI Details Patient comes in today for her follow-up visit - is transferring over from Dr. Rossi, who retired from the practice earlier this year Patient states that she feels okay She denies any headaches or dizziness Denies any chest pains, no shortness of breath No nausea/vomiting, no abdominal pain No change in bowel habits noted She had her follow-up labs done last month - to discuss her results She admitted to self-discontinuing her Atorvastatin about 2 to 3 months ago due to frequent and worsening myalgias and elevated LFTs Patient is following up with endocrinology at [facility] (Dr. Kaelyn Mckay) for management of her hyperthyroidism States that a new nodule was found in her thyroid gland back in November 2024 and her doctor recommended continuing observation for now [facility] Medical History Impaired fasting glucose Obesity (BMI 30-39.9) Elevated LFTs GERD without esophagitis Mixed hyperlipidemia Essential hypertension Multinodular thyroid Breast calcification, left Hypertension Hyperthyroidism Surgical History History of biopsy History of breast biopsy History of cholecystectomy Family History Father Esophageal cancer Mother No problems noted. Social History Housing: Condominium Alcohol intake: current Alcohol intake frequency: holidays/special occasions only Patient Tobacco Use Status: Current everyday Tobacco user Tobacco use type: Cigarette Cigarette Packs Per Day: 0.25 Cigarettes Per Day: 1 e-Cigarette/Vaping Use: Never Used Second Hand Smoke Exposure: Yes service: No Current occupational status: retired Cognitive needs: No Hearing needs: No Vision needs: No Questionnaire PHQ-9 Over the last 2 weeks, how often have you been bothered by any of the following problems? 1. Little interest or pleasure in doing things: not at all 2. Feeling down, depressed, or hopeless: not at all 3. Trouble falling or staying asleep, or sleeping too much: not at all 4. Feeling tired or having little energy: not at all 5. Poor appetite or overeating: not at all 6. Feeling bad about yourself - or that you are a failure or have let yourself or your family down: not at all 7. Trouble concentrating on things, such as reading the newspaper or watching television: not at all 8. Moving or speaking so slowly that other people could have noticed. Or the opposite - being so fidgety or restless that you have been moving around a lot more than usual: not at all 9. Thoughts that you would be better off or of hurting yourself in some way: not at all Total score: 0 Depression Screening Interpretation: Negative Depression Screening Done: Yes 29822 - PHQ-9 Billing: Yes Source: Developed by Drs. Reynold Castillo, Cecelia Baker, Michael Pantoja and colleagues, with an educational johnson from [employer]. Thrive Questionnaire Date Thrive assessed: 02/24/25 I am a: Patient What is your living situation today?: I have a steady place to live Within the past 12 months, did the food you bought not last and you didn't have the money to get more?: Never true Do you have trouble paying for medicines?: No Do you have trouble getting transportation to medical appointments?: No Do you have trouble paying your heating and electricity bill?: No Do you have trouble with day-to-day activities such as bathing, preparing meals, shopping, managing finances, etc.?: No Are you currently unemployed and looking for a job?: No Are you interested in more education?: No Please select the resources that you would like help with: None Currently or been in a relationship where the following occur: No concerns reported THRIVE Score: 0 AUDIT C Alcohol Use Questionnaire (AUDIT-C) 1. How often do you have a drink containing alcohol?: Never 3. How often do you have six or more drinks on one occasion?: Never Total Score: 0 Score Reviewed/Action Taken: Yes NATALIE-7 AMB Questionnaire NATALIE-7 Date NATALIE - 7 assessed: 07/13/24 Source: Developed by Drs. Reynold Castillo, Cecelia Baker, Michael Pantoja and colleagues, with an educational johnson from [employer]. Review of Systems Const Denies chills, Denies fatigue, Denies fever(s) and Denies headache(s) ENT Denies dysphagia, Denies dizziness, Denies otalgia, Denies headache(s), Denies neck pain, Denies odynophagia and Denies sore throat Card Denies chest pain, Denies palpitations and Denies dyspnea Resp Denies chest congestion, Denies cough and Denies dyspnea GI Denies abdominal pain, Denies constipation, Denies dysphagia, Denies heartburn, Denies diarrhea, Denies nausea, Denies odynophagia and Denies vomiting Denies difficulty voiding, Denies nocturia and Denies dysuria Musc Denies back pain, Reports myalgias (while on Atorvastatin a few months ago) and Denies neck pain Skin/Breast Denies rash Neuro Denies dizziness and Denies headache(s) Endo Denies fatigue and Denies palpitations Physical exam (Primary Care) Vital Signs: Last Vital Signs Pulse 79 03/03/25 12:54 BP 132/90 H 03/03/25 12:54 Pulse Ox 98 03/03/25 12:54 Oxygen Delivery Method Room Air 03/03/25 12:54 Tobacco/Smoking Status: Tobacco use Status Tobacco use date assessed 03/03/25 03/03/25 12:59 Patient Tobacco Use Status Current everyday Tobacco 03/03/25 12:59 Tobacco use type Cigarette 03/03/25 12:59 e-Cigarette/Vaping Use Never Used 03/03/25 12:59 PHQ-9: PHQ-9 Score PHQ-9: Total score 0 03/04/25 22:02 Depression Screening Interpretation: Negative Thrive Assessment: Date of Thrive Assessment Date Thrive assessed 02/24/25 03/03/25 12:59 Currently or been in a relationship where the following occur: No concerns reported Const General: no acute distress and alert HENMT Ears: TM's normal bilaterally and EAC's normal Throat: Yes posterior oropharynx normal and Yes tonsils normal (no TP congestion) Neck Neck: Yes supple and No lymphadenopathy Thyroid: Thyroid normal Resp Auscultation: clear to auscultation bilaterally, no rales and no wheezes Cardio Rate: regular rate Rhythm: regular rhythm Heart sounds: no murmurs GI Palpation (GI): Soft to palpation and nontender Auscultation: normal bowel sounds General: Yes no CVA tenderness Back/Spine/Pelvis Back: no CVA tenderness Thoracic/Lumbar Spine: No lumbar spinal tenderness Skin Rashes: no rashes Extrem General: Yes no clubbing, cyanosis or edema Results Reviewed Results Reviewed: Laboratory Tests 07/23/24 01/18/25 08:30 10:55 WBC 7.0 Hgb 14.0 Hct 41.9 Plt Count 339 Sodium 143 Potassium 4.1 Creatinine 1.05 Estimated GFR 51 Fasting Glucose 113 H Calcium 9.5 AST 37 H ALT 47 H Triglycerides 173 H Cholesterol 160 LDL Cholesterol, Calc 84 HDL Cholesterol 42 TSH 0.78 Free T4 0.76 Free T3 3.2 Coding Level of Care Code Est Pt Level 4 (04227) Diagnoses Essential hypertension I10 Mixed hyperlipidemia E78.2 Hyperthyroidism E05.90 Impaired fasting glucose R73.01 GERD without esophagitis K21.9 Elevated LFTs R79.89 Obesity (BMI 30-39.9) E66.9 Additional Codes PHQ-9 - 84932 - PHQ-9 Billing: Yes ([id number]) Assessment & Plan Assessment & Plan (1) Essential hypertension: Code(s): I10 - Essential (primary) hypertension Category: Medical Plan: Reinforced low sodium diet - goal is systolic BP of at least 130 to 140 mm or less Continue Lisinopril 2.5 mg QD Patient is reminded to continue monitoring her blood pressure regularly (2) Mixed hyperlipidemia: Code(s): E78.2 - Mixed hyperlipidemia Category: Medical Plan: Results of her labs done last month reviewed and discussed with patient She admitted to self-discontinuing her Atorvastatin about 2 to 3 months ago due to frequent and increasing myalgia while on Atorvastatin - states that her myalgias have improved significantly since she stopped taking her cholesterol medication Reinforced low cholesterol diet As her cholesterol levels do not seem to have gotten significantly worse over the past few months since she stopped taking her Atorvastatin, will continue to hold off on starting her back on any other Rx for her cholesterol in the meantime If her cholesterol levels get significantly worse over the next several months, can consider starting her on one of the new PCSK9 inhibitors if the Rx will be covered by her insurance Will have patient recheck her labs and fasting lipids in 6 months for follow up (3) Hyperthyroidism: Code(s): E05.90 - Thyrotoxicosis, unspecified without thyrotoxic crisis or storm Category: Medical Plan: Continue Methimazole 5 mg 1/2 tablet (2.5 mg) twice a week Patient states that a new thyroid nodule was reportedly discovered on imaging studies done back in November 2024 and endocrinology has recommended observation for now Follow up with endocrinology (patient see Dr. Kaelyn Mckay at [facility]) as scheduled Will recheck her TFTs in 6 months for follow up (4) Impaired fasting glucose: Code(s): R73.01 - Impaired fasting glucose Category: Medical Plan: Her FBS was elevated at 113 mg/dl on her labs done last month Reinforced low calorie/low carb diet Will recheck her FBS and also check her HgbA1c in 6 months for follow up/further evaluation (5) GERD without esophagitis: Code(s): K21.9 - Gastro-esophageal reflux disease without esophagitis Category: Medical Plan: Dietary restrictions reinforced Continue Omeprazole 20 mg QD (6) Elevated LFTs: Code(s): R79.89 - Other specified abnormal findings of blood chemistry Category: Medical Plan: His LFTs are still slightly elevated on her labs done last month This is most likely due to Atorvastatin and and her weight (steatosis) - patient is advised that this should gradually improved and tredn back down to normal since she stopped taking Atorvastatin a few months ago She is advised that losing some weight will also help (7) Obesity (BMI 30-39.9): Code(s): E66.9 - Obesity, unspecified Category: Medical Plan: Reinforced diet/exercise as tolerated/lose weight Plan Follow up in 6 months Orders: Orders Complete Blood Count Auto Diff 6 Months D64.9 - Anemia, unspecified Thyroid Stimulating Hormone 6 Months E03.9 - Hypothyroidism, unspecified Free T4 (Free Thyroxine) 6 Months E03.9 - Hypothyroidism, unspecified Vitamin D 25-OH Total 6 Months E55.9 - Vitamin D deficiency, unspecified Hemoglobin A1c 6 Months R73.01 - Impaired fasting glucose Comprehensive Heth. Panel Fast 6 Months E78.00 - Pure hypercholesterolemia, unspecified Lipid Panel 6 Months E78.00 - Pure hypercholesterolemia, unspecified Triiodothyronine T3 Total 6 Months R79.89 - Other specified abnormal findings of blood chemistry UA CC w/rflx Micro + Cult 6 Months R30.0 - Dysuria
--- OUTSIDE RECORDS SUMMARY | 2025-03-03 17:25 | XMS_ITS | Encounter Summary ---
Author Organization [facility] Address [address] [facility] [address] [place] [address] Phone Care Team Providers Care Risk Management Internship Name Role Phone Domo Laird MD Primary Care Provider [phone] Encounter Details Date Type Department Care Team (Late Contact Info) Description 01/27/2025 Orders Only [facility] [address] [place], [place] [id number] System, Provider Not In, [facility] [address] [address] Social History Tobacco Use Types Packs/Day Years [...] on file Sexual Orientation Not on file documented as of this encounter Plan of Treatment Upcoming Encounters Date Type Department Care Team (Late Contact Info) Description 08/16/2025 11:40 AM EDT Office Visit [facility] [address] [place] [address] Kaelyn Mckay MD [address] [place] [phone] [email or web address] documented as of this encounter Procedures Procedure Name Priority Date/Time Associated Diagnosis Comments CYTOLOGY Routine 01/27/2025 11:32 AM EDT CYTOLOGY Routine 01/27/2025 11:31 AM EDT documented in this encounter Results * Cytology (01/27/2025 11:32 AM EDT) us Provider Not In System PhD PATHOLOGY ORDERABLES Final Result * Cytology (01/27/2025 11:31 AM EDT) us Provider Not In System PhD PATHOLOGY ORDERABLES Final Result documented in this encounter Visit Diagnoses Not on filedocumented in this encounter Care Teams Risk Management Internship Relationship Specialty Start Date End Date Domo Laird MD [address] [place] [address] [address] PCP - General Internal Medicine 07/29/24 documented as of this encounter Additional Source Comments The information contained in this document represents components of the legal health record. It is not the complete legal health record.[facility]
--- OUTSIDE RECORDS SUMMARY | 2025-03-03 17:25 | XMS_ITS | Clinical Summary ---
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 Unfortunately I still do not have her old records from [facility]. She was started on 2.5 mg methimazole daily around 2020 what she has been taking regularly. She was seen by Dr. Fields in the spring who ordered a thyroid ultrasound which was done on 07/23/2022. Subsequently she had FNA of 2 left nodules and 3 right nodules at [facility], all were benign. Patient denies any compression symptoms in the thyroid bed. Her TSH level became slightly elevated in early 02/2023 and high normal in early 03/2023 while taking 2.5 mg methimazole daily. We decreased her dose to 2.5 mg 3 times a week and 04/2023 and to 2.5 mg twice a week in 10/2023. She remains clinically and biochemically euthyroid on this dose. Last TSH low normal at 0.78 with normal thyroid hormone levels on 01/18/2025. She had repeat thyroid ultrasound on 11/23/2024 at [facility]. At least 5 nodules were reported, one of them new in the right lower posterior pole measuring 1.6 cm and TR 5. The right of the isthmus nodule was measured larger at 2.1 x 1 x 2.3 cm from 2.2 x 1.2 x 1.3 cm and it is TR 4. These nodules meet criteria for FNA. From report it is unclear which nodules were biopsied in the past. No compression symptoms in the thyroid bed. -Continue methimazole 2.5 mg twice a week to keep TSH normal. -Reviewed symptoms of hypo and hyperthyroidism, patient to call if concerned. -Repeat TFTs in 6 months or as clinically indicated - Will request thyroid ultrasound images to help decide on need for FNA and further imaging follow-up Assessment & Plan (06/07/2024 2:21 PM EST): 79-year-old woman was diagnosed with hyperthyroidism around 2019 when I first met her. Unfortunately I still do not have her old records from [facility]. She was started on 2.5 mg methimazole daily around 2020 what she has been taking regularly. She was seen by Dr. Fields in the spring who ordered a thyroid ultrasound which was done on 07/23/2022. Subsequently she had FNA of 2 left nodules and 3 right nodules at [facility], all were benign. Patient denies any compression [...] do not have her old records from [facility]. She was started on 2.5 mg methimazole daily around 2020 what she has been taking regularly. I saw her at [facility] about 1.5 years ago when we were planning to do a thyroid ultrasound which was delayed because of my move to a new practice. She was seen by Dr. Fields in the spring of 2022 who ordered a thyroid ultrasound which was done on 07/23/2022. Subsequently she had FNA of 2 left nodules and 3 right nodules at [facility], all were benign. Patient denies any compression [...] did not have her old records from [facility] when I first met her around 2019. She was started on 2.5 mg methimazole daily around 2020 what she has been taking regularly. I saw her at [facility] about a year ago when we were planning to do a thyroid ultrasound which was delayed because of my move to a new practice. She was seen by Dr. Fields in the spring of this year who ordered a thyroid ultrasound which was done on 07/23/2022. Subsequently she had FNA of 2 left nodules and 3 right nodules at [facility], all were benign. Patient denies any compression [...] Encounters Date Type Department Care Team Description 01/27/2025 Orders Only [facility]Outside Imaging [address] [place] [address] System, Provider Not In, PhD 01/27/2025 Ancillary Orders [facility] [address] [place] [address] El, MD El 01/27/2025 Ancillary Orders [facility] [address] [place] [address] Unknown, MD El 01/27/2025 Ancillary Orders [facility] [address] [place] [address] Unknown, MD El 01/27/2025 Ancillary Orders [facility] [address] [place] [address] Unknown, MD El 01/26/2025 11:40 AM EDT Office Visit [facility] [address] [place] [address] Kaelyn Mckay MD Toxic multinodul goiter 01/26/2025 Telephone [facility] [address] [place] [address] Kaelyn Mckay MD Request thyroid ultrasound images (Came) from Last 3 Months Family History Medical [...] Sign Reading Time Taken Comments Blood Pressure 142/78 01/26/2025 11:30 AM EDT Pulse 78 01/26/2025 11:30 AM EDT Temperature 36.5 C (97.7 F) 04/16/2023 11:16 AM EST Respiratory Rate - - Oxygen Saturation 98% 01/26/2025 11:30 AM EDT Inhaled Oxygen Concentration - - Weight 93.4 kg (206 lb) 06/02/2024 10:53 AM EST Height 160.8 cm (5' 3.31 ) 01/26/2025 11:30 AM E DT Body Mass Index 36.15 04/16/2023 11:16 AM EST Plan of Treatment Upcoming Encounters Date Type Department Care Team (Late st Contact Info) Description 08/16/2025 11:40 AM EDT Office Visit [facility] [address] [place] [address] Kaelyn Mckay MD [address] [place] [phone] [email or web address] Health Maintenance Due Date Last Done Comments [...] VACCINE (#1) 2024 COVID-19 VACCINE ( - 2024-2 6 season) 2025 CREATININE LEVEL 07/23/2025 07/23/2024 HEPATITIS [...] EDT CYTOLOGY Routine 01/27/2025 11:31 AM EDT FREE T4 Routine 01/18/2025 11:39 AM EDT Toxic multinodul goiter FREE T3 Routine 01/18/2025 11:39 AM EDT Toxic multinodul goiter ASPARTATE AMINOTRANSFERASE (AST) Routine 01/18/2025 11:39 AM EDT Toxic multinodul goiter ALANINE AMINOTRANSFERASE (ALT) Routine 01/18/2025 11:39 AM EDT Toxic multinodul goiter CBC Routine 01/18/2025 11:39 AM EDT Toxic multinodul goiter TSH Routine 01/18/2025 11:39 AM EDT Toxic multinodul goiter COMPREHENSIVE METABOLIC PANEL Routine 07/23/2024 1:23 PM EDT from Last 3 Months or Most Recently Relevant to Health Maintenance Results * Cytology (01/27/2025 11:32 AM EDT) Only the most recent of2 resultswithin the time period is included. Provider Not In System PhD PATHOLOGY ORDERABLES Final Result * Free T4 (01/18/2025 11:39 AM EDT) Blood Kaelyn Mckay MD LAB BLOOD ORDERABLES Final Res ult Performing Organization Address [facility] de Phone Number [address] [address] * Free T3 (01/18/2025 11:39 AM EDT) Blood Kaelyn Mckay MD LAB BLOOD ORDERABLES Final Res ult Performing Organization Address [facility] de Phone Number [address] [address] * Aspartate aminotransferase (AST) (01/18/2025 11:39 AM EDT) Blood Kaelyn Mckay MD LAB BLOOD ORDERABLES Final Res ult Performing Organization Address [facility] de Phone Number [address] [address] * Alanine aminotransferase (ALT) (01/18/2025 11:39 AM EDT) Blood Kaelyn Mckay MD LAB BLOOD ORDERABLES Final Res ult Performing Organization Address [facility] Co de Phone Number [address] [address] * CBC (01/18/2025 11:39 AM EDT) Blood us Kaelyn Mckay MD LAB BLOOD ORDERABLES Final Res ult Performing Organization Address City/[facility]/ZIP Co de Phone Number [address] [address] * TSH (01/18/2025 11:39 AM EDT) Blood us Kaelyn Mckay MD LAB BLOOD ORDERABLES Final Res ult Performing Organization Address City/[facility]/ZIP Co de Phone Number [address] [address] * Comprehensive metabolic panel (07/23/2024 1:23 PM EDT) Historical Provider LAB BLOOD ORDERABLES Phoebe l Result from Last 3 Months or Most Recently Relevant to Health Maintenance Insurance [place] [id number] [employer] MED[employer] ENHANCE SUPPLEMENT MEDICARE PART A & [place] [address] [address] MEDICARE ENHANCE SUPPLEMENT MEDICARE PART A & B [facility] MEDICARE ENHANCE SUPPLEMENT MEDICARE PART A & B [employer] MEDIC[employer] ENHANCE SUPPLEMENT MEDICARE PART A & B [facility] MEDICARE ENHANCE SUPPLEMENT MEDICARE PART A & B [facility] MEDICARE ENHANCE SUPPLEMENT Care Teams Hay Chopper Relationship Specialty Start Date End Date Domo Laird MD [address] [place] [address] [place] [address] PCP - General Internal Medicine 07/29/24 Additional Source Comments The information contained in this document represents components of the legal health record. It is not the complete legal health record.[facility]
== END 2025-03-03 13:32 | disposition home or self-care (01) ==
LOC: HO.HMCH 12:36
PROVIDERS: PCP Internal Medicine; Visit Provider Internal Medicine
DX: I10 Essential (primary) hypertension (principal); E78.2 Mixed hyperlipidemia; E05.90 Thyrotoxicosis, unspecified without thyrotoxic crisis or storm; R73.01 Impaired fasting glucose; K21.9 Gastro-esophageal reflux disease without esophagitis; E66.9 Obesity, unspecified; R79.89 Other specified abnormal findings of blood chemistry

== ENCOUNTER → 2025-03-03 12:35 | Outpatient (BNVA) | payer MEDICARE, OTHER, SELFPAY | PROVIDERS: PCP Internal Medicine; Visit Provider Internal Medicine | DX: I10 Essential (primary) hypertension (principal); E78.2 Mixed hyperlipidemia; E05.90 Thyrotoxicosis, unspecified without thyrotoxic crisis or storm; R73.01 Impaired fasting glucose; K21.9 Gastro-esophageal reflux disease without esophagitis; R79.89 Other specified abnormal findings of blood chemistry; E66.9 Obesity, unspecified; D64.9 Anemia, unspecified; E03.9 Hypothyroidism, unspecified; E55.9 Vitamin D deficiency, unspecified; E78.00 Pure hypercholesterolemia, unspecified; R30.0 Dysuria | CPT/HCPCS: 96127; 99212 ==